=== PATIENT | male | born 1960 | race African-American/Black ===

== ENCOUNTER 2019-01-09 14:40 | Outpatient (CLI) | payer OTHER ==
--- NOTE | 2019-01-09 15:37 | ULT ---
Exam: Bilateral renal ultrasound HISTORY: Chronic kidney disease COMPARISON: None FINDINGS: Right kidney: There are multiple cysts within the right kidney. The largest is seen within the superi or pole measuring 3.1 x 2.8 x 2 cm. There are 2 additional 1.2 cm cyst seen within the right mid kidney. Right kidney measurements: 11.7 x 6.2 x 6.0 cm. Left kidney: There is a 2.2 x 2.5 x 2 cm cyst involving the inferior pole of the left kidney. Left kidney measurements: 10.8 x 4.7 x 4.8 cm. Urinary bladder: Prevoid bladder volume was 202.83 cc. There are bilateral ureteral jets. IMPRESSION: Bilateral renal cysts. No hydronephrosis demonstrated.
== END 2019-01-09 14:41 | disposition home or self-care (01) ==
LOC: BICULT 14:40
PROVIDERS: ATTEND Internal Medicine Nephrology
DX: N18.3 Chronic kidney disease, stage 3 (moderate) (principal); N28.1 Cyst of kidney, acquired
CPT/HCPCS: 76770

== ENCOUNTER 2020-05-07 09:40 | Inpatient (IN) | payer BC, OTHER ==
[2020-05-07 10:34] LABS: #Basophils 0.1 thou/uL (0.0-0.2); #Lymphocytes 0.7 thou/uL (1.20-3.40); #Monocytes 0.5 thou/uL (0.11-0.59); #Neutrophils 4.5 thou/uL (1.40-6.50); %Eosinophils 0.3 % (0.0-10.0); %Lymphocytes 12.3 % (21.0-51.0); %Monocytes 9.1 % (0.0-10.0); %Neutrophils 76.3 % (42.0-75.0); Mean Corpuscular HGB CONC 32.5 g/dL (32.0-36.0); Mean Corpuscular Hemoglobin 28.2 pg (27.0-31.0); Mean Corpuscular Volume 86.8 fL (78.0-98.0); Mean Platelet Volume 11.5 fL (7.4-10.4); Platelet Count 144 thou/uL (130-400); RBC Distribution Width 12.8 % (11.5-14.5); Red Blood Cell (RBC) Count 4.62 mill/uL (4.70-6.10); White Blood Cell (WBC) Count 5.9 thou/uL (4.8-10.8)
--- NOTE | 2020-05-07 10:37 | RAD ---
PORTABLE CHEST: Date: 05/07/2020 PROVIDED CLINICAL HISTORY: Dyspnea. FINDINGS: Comparison with 01/22/2017. Evaluation is limited by patient body habitus. The lungs are hypoinflated, further limiting evaluatio n. The cardiac silhouette appears enlarged, which may be at least partially on the basis of portable technique. There are patchy bilateral air space opacities. There is no pleural fluid or pneumothorax apparent. IMPRESSION: Patchy bilateral air space disease, typical but not specific for COVID pneumonia. POS: LLOYD
[2020-05-07 10:58] LABS: ALT (SGPT) 29 U/L (8-55); AST (SGOT) 40 U/L (5-34); Albumin 2.3 g/dL (3.5-5.0); Alkaline Phosphatase 72 U/L (40-110); Anion Gap 17 mmol/L (10-20); BUN (Urea Nitrogen) 66 mg/dL (8.4-25.7); Bilirubin, Total 0.3 mg/dL (0.2-1.2); Calc. Creatinine Clearance 0 mL/min (70-130); Calcium 7.6 mg/dL (7.8-10.44); Carbon Dioxide 16 mmol/L (22-29); Chloride 104 mmol/L (98-107); Globulin 3.4 g/dL (2.4-3.5); Glucose 143 mg/dL (70-105); Protein, Total 5.7 g/dL (6.0-8.3); Sodium 133 mmol/L (136-145)
[2020-05-07] MEDS ORDERED: Dexamethasone 4 mg/ml Vial SLOW IVP SCH (11:00)
[2020-05-07] MEDS ORDERED: Dexamethasone 10 MG/ML VIAL ONE (11:01)
[2020-05-07] MEDS ORDERED: Ondansetron PF 4 MG/2 ML Vial IVP PRN (12:36)
[2020-05-07] MEDS ORDERED: Acetaminophen 325 MG TAB PO PRN (12:36)
--- NOTE | 2020-05-07 12:43 | PDOC.HHP ---
Hospitalist HPI - History of Present Illness Low oxygen level History of Present Illness: 59-year-old gentleman with a history of diabetes mellitus type 2, obstructive sleep apnea, renal insufficiency presented to the emergency department because his oxygen level was in the mid 80s on room air when he checked at home. Patient reports some shortness of breath with exertion. He also reports intermittent fever and nonproductive cough as well as poor appetite. He reports decreased oral intake as a result of the poor appetite. He tested positive for COVID-19 5 days ago. Chest x-ray done in the emergency department demonstrated patchy bilateral infiltrates. His oxygen saturation was 85% on room air in the ED so patient was placed on oxygen by nasal cannula with a resultant good oxygen saturation. Blood work showed significantly elevated creatinine of 6 up to twice his baseline of 3 with associated metabolic acidosis with bicarb of 16. Nephrology was contacted who recommended renal ultrasound. He denied any diarrhea or nausea or vomiting. Patient is hospitalized for further management. Hospitalist ROS - Medication Medications: Except as documented, all other systems reviewed and negative. Hospitalist History - Past Medical History Cardiac: reports: HTN Pulmonary: reports: Other (Obstructive sleep apnea) Renal/: reports: Chronic renal insuff Endocrine: reports: Diabetes - Past Surgical History Past Surgical History: reports: Hernia Repair - Family History Family History: reports: diabetes mellitus (Mother) - Social History Smoking Status: Former smoker Alcohol: reports: Occassional Living Situation: With Family - Exam General Appearance: NAD, awake alert General - other findings: Morbidly obese Eye: PERRL, anicteric sclera ENT: normocephalic atraumatic, moist mucosa Neck: supple, symmetric, no JVD Respiratory: CTAB, no wheezes, no rales Gastrointestinal: soft, non-tender, normal bowel sounds Extremities: no cyanosis, no edema Skin: normal turgor, no lesions Neurological: cranial nerve grossly intact, no weakness, no focal deficits Musculoskeletal: normal tone, normal strength Psychiatric: normal affect, normal behavior, A&O x 3 Hospitalist Results - Labs Result Diagrams: 05/07/20 10:08 05/07/20 10:08 Lab results: WBC 5.9 thou/uL (4.8-10.8) 05/07/20 10:08 Hgb 13.0 g/dL (14.0-18.0) L 05/07/20 10:08 Hct 40.1 % (42.0-52.0) L 05/07/20 10:08 MCV 86.8 fL (78.0-98.0) 05/07/20 10:08 Plt Count 144 thou/uL (130-400) 05/07/20 10:08 Neutrophils % 76.3 % (42.0-75.0) H 05/07/20 10:08 Sodium 133 mmol/L (136-145) L 05/07/20 10:08 Potassium 4.0 mmol/L (3.5-5.1) 05/07/20 10:08 Chloride 104 mmol/L (98-107) 05/07/20 10:08 Carbon Dioxide 16 mmol/L (22-29) L 05/07/20 10:08 BUN 66 mg/dL (8.4-25.7) H 05/07/20 10:08 Creatinine 6.80 mg/dL (0.7-1.3) H 05/07/20 10:08 Glucose 143 mg/dL (70-105) H 05/07/20 10:08 Calcium 7.6 mg/dL (7.8-10.44) L 05/07/20 10:08 Total Bilirubin 0.3 mg/dL (0.2-1.2) 05/07/20 10:08 AST 40 U/L (5-34) H 05/07/20 10:08 ALT 29 U/L (8-55) 05/07/20 10:08 Alkaline Phosphatase 72 U/L (40-110) 05/07/20 10:08 Troponin I 0.025 ng/mL (< 0.028) 05/07/20 10:08 Serum Total Protein 5.7 g/dL (6.0-8.3) L 05/07/20 10:08 Albumin 2.3 g/dL (3.5-5.0) L 05/07/20 10:08 - Radiology Interpretation Chest x-ray Status: report reviewed by me (Bilateral patchy infiltrates.) Hospitalist H&P A/P - Problem (1) Acute renal failure superimposed on stage 4 chronic kidney disease Code(s): N17.9 - ACUTE KIDNEY FAILURE, UNSPECIFIED; N18.4 - CHRONIC KIDNEY DISEASE, STAGE 4 (SEVERE) Status: Acute (2) Pneumonia due to COVID-19 virus Code(s): U07.1 - COVID-19; J12.82 - PNEUMONIA DUE TO CORONAVIRUS DISEASE 2019 Status: Acute (3) Hypoxia Code(s): R09.02 - HYPOXEMIA Status: Acute (4) Diabetes mellitus type 2 in obese Code(s): E11.69 - TYPE 2 DIABETES MELLITUS WITH OTHER SPECIFIED COMPLICATION; E66.9 - OBESITY, UNSPECIFIED Status: Acute (5) Obstructive sleep apnea Code(s): G47.33 - OBSTRUCTIVE SLEEP APNEA (ADULT) (PEDIATRIC) Status: Acute - Plan Plan: Admit patient to the medical floor. Hydrate with IV fluid to treat acute renal failure. Nephrology recommend bicarb drip. Renal ultrasound requested per nephrology recommendation. UA with microscopy also requested. Consult to nephrology-Dr. Rendon. Start IV steroid for Covid pneumonia. Vitamin D and C supplementation. Zinc supplementation. Social service consult to arrange for home oxygen. Monitor renal function
[2020-05-07] MEDS ORDERED: Sodium Chloride 0.9% 1,000 ML IV SCH (12:45)
--- NOTE | 2020-05-07 13:01 | ULT ---
BILATERAL RENAL ULTRASOUND: Date: 05/07/2020 PROVIDED CLINICAL HISTORY: Renal failure. FINDINGS: Comparison with 01/09/2019. The right kidney measures about 10.3 x 5.4 x 4.6 cm and demonstrates no evidence for hydronephrosis o r solid mass. Simple-appearing cysts are seen similar to prior. The left kidney measures approximately 9.1 x 5.2 x 4.5 cm and demonstrates no evidence for hydronephr osis or solid mass. A simple-appearing cyst is seen, similar to the prior study. The urinary bladder appears sonographically unremarkable. IMPRESSION: No evidence for hydronephrosis. POS: LLOYD
[2020-05-07] MEDS ORDERED: Bacteriostatic Water 30 ML VIAL FS PRN (13:30)
[2020-05-07] MEDS ORDERED: Sodium Bicarbonate 50 MEQ in Sodium Chloride 0.45% 1,000 ML IV SCH (14:00)
[2020-05-07] MEDS ORDERED: Dextrose 5% in Water 1,000 ML IV SCH (14:00)
[2020-05-07] MEDS ORDERED: methylPREDNISolone Sod Succ 40 MG VIAL ONE (16:08)
[2020-05-07] MEDS: Heparin 5,000 UNITS/ML VIAL SC SCH ×2 (16:09→22:53)
[2020-05-07] MEDS: methylPREDNISolone Sod Succ/PF 125 MG/2 ML VIAL IVP SCH (16:14)
--- NOTE | 2020-05-07 20:04 | CON ---
DATE OF CONSULTATION: 05/07/2020 CONSULTING PHYSICIAN: Dr. Lipscomb. REASON FOR CONSULTATION: Acute kidney injury. REASON FOR ADMISSION: Hypoxia. HISTORY OF PRESENT ILLNESS: A 59-year-old male with history of type 2 diabetes, hypertension, CKD, was sent to the hospital with shortness of breath positive for COVID-19 five days ago and is being treated. Nephrology is consulted for acute kidney injury. His creatinine was elevated at 6.8. Baseline creatinine is around 2 to 3. The patient is on COVID isolation. PAST MEDICAL HISTORY: Positive for; 1. Hypertension. 2. CKD. 3. Type-2 diabetes. PAST SURGICAL HISTORY: Hernia repair. HOME MEDICATIONS: Reviewed. ALLERGIES: NO KNOWN DRUG ALLERGIES. SOCIAL HISTORY: No smoking, alcohol, or illicit drugs. FAMILY HISTORY: No history of kidney disease. REVIEW OF SYSTEMS: Could not be obtained. OBJECTIVE: The patient is on COVID isolation. Vital signs reviewed. LABORATORY DATA: Hemoglobin is 13.0. Potassium 4.0, BUN is 66, creatinine is 6.8. ASSESSMENT AND PLAN: 1. Acute kidney injury. Avoid nephrotoxins and check renal ultrasound. Hydration if tolerated with close monitoring of renal status. 2. Acidosis, on bicarb drip. 3. Hypocalcemia. 4. Hypoalbuminemia. 5. Anemia. Recommend bicarb drip with close monitoring on renal function and we will follow. Job ID: [id number]
[2020-05-07 20:25] VITALS: BMI 39.4
[2020-05-07] MEDS ORDERED: methylPREDNISolone Sod Succ 40 MG VIAL IVP SCH (21:00)
[2020-05-07] MEDS: Sodium Bicarbonate 150 MEQ in Dextrose 5% in Water 1,000 ML IV SCH (22:30)
[2020-05-07] MEDS: Ascorbic Acid 500 mg Chewable Tablet PO SCH (22:52)
[2020-05-08] MEDS: methylPREDNISolone Sod Succ/PF 125 MG/2 ML VIAL IVP SCH (02:38)
[2020-05-08 06:00] LABS: #Lymphocytes 0.6 thou/uL (1.20-3.40); #Monocytes 0.2 thou/uL (0.11-0.59); #Neutrophils 2.7 thou/uL (1.40-6.50); %Eosinophils 0.1 % (0.0-10.0); %Monocytes 4.2 % (0.0-10.0); %Neutrophils 78.7 % (42.0-75.0); Hemoglobin 13.8 g/dL (14.0-18.0); Mean Corpuscular HGB CONC 31.2 g/dL (32.0-36.0); Mean Corpuscular Volume 86.4 fL (78.0-98.0); Mean Platelet Volume 11.1 fL (7.4-10.4); Platelet Count 171 thou/uL (130-400); Red Blood Cell (RBC) Count 5.12 mill/uL (4.70-6.10); White Blood Cell (WBC) Count 3.5 thou/uL (4.8-10.8)
[2020-05-08 06:22] LABS: Albumin 2.4 g/dL (3.5-5.0); Anion Gap 19 mmol/L (10-20); BUN (Urea Nitrogen) 85 mg/dL (8.4-25.7); BUN/Creatinine Ratio 10.65; Calc. Creatinine Clearance 16 mL/min (70-130); Calcium 8.1 mg/dL (7.8-10.44); Carbon Dioxide 13 mmol/L (22-29); Chloride 102 mmol/L (98-107); Glucose 222 mg/dL (70-105); Phosphorus 6.6 mg/dL (2.3-4.7); Potassium 4.3 mmol/L (3.5-5.1); Sodium 130 mmol/L (136-145)
[2020-05-08 06:50] LABS: Bilirubin Negative (Negative); Blood, Urine 2+ (Negative); Clarity Clear (Clear); Glucose, Urine (Dipstick) 500 mg/dL (Negative); Ketone, Urine Negative (Negative); Leukocyte Negative Leu/uL (Negative); Nitrite Negative (Negative); Protein, Urine (Dipstick) Greater than 600 mg/dL (Neg-Trace); RBC/HPF 0-3 HPF (0-3); Specific Gravity, Urine 1.019 (1.002-1.036); Squamous Epithelial 0-3 HPF (0-3); Urobilinogen Normal mg/dL (Less than 2); pH, Urine 6.5 (5.0-9.0)
[2020-05-08 06:52] LABS: Bacteria/HPF 1+ HPF (None Seen)
[2020-05-08] MEDS: Ascorbic Acid 500 mg Chewable Tablet PO SCH (07:32)
[2020-05-08] MEDS: Cholecalciferol 1,000 UNITS (25 MCG) TAB PO SCH (07:33)
[2020-05-08] MEDS: Heparin 5,000 UNITS/ML VIAL SC SCH ×3 (07:34→21:11)
[2020-05-08] MEDS ORDERED: Sodium Bicarbonate 150 MEQ in Dextrose 5% in Water 1,000 ML IV SCH (08:00)
[2020-05-08] MEDS ORDERED: Dextrose 5% in Water 1,000 ML IV PRN (12:13)
[2020-05-08] MEDS ORDERED: Dextrose 50% Abboject 50 ML SYRINGE SLOW IVP PRN (12:13)
[2020-05-08] MEDS ORDERED: Dexamethasone 4 mg/ml Vial SLOW IVP SCH (12:30)
[2020-05-08] MEDS ORDERED: Albuterol 200 PUFF (6.7GM INHALER) INH PRN (12:39)
[2020-05-08] MEDS: Albuterol 200 PUFF (6.7GM INHALER) INH SCH ×3 (15:45→22:56)
[2020-05-08] MEDS: Insulin Regular 300 UNITS/3 ML VIAL SC PRN ×2 (15:56→21:22)
[2020-05-08] MEDS: Dexamethasone 4 mg/ml Vial SLOW IVP SCH (21:11)
[2020-05-08] MEDS: Sodium Bicarbonate 150 MEQ in Dextrose 5% in Water 1,000 ML IV SCH (21:14)
--- NOTE | 2020-05-08 23:39 | PDOC.HOSPP ---
- Subjective Encounter Date: 05/08/20 Encounter Time: 14:30 Subjective: Patient seen and examined for respiratory failure due to COVID 19 pneumonia with acute kidney injury. Refuses insulin per RN. Feeling somewhat better. Denies any chest pain or Palpitations. - Objective Vital Signs & Weight: Vital Signs (12 hours) Temp Pulse Resp BP Pulse Ox 05/08/20 21:25 98.4 F 88 22 H 139/88 95 05/08/20 16:00 98.4 F 84 19 126/86 95 05/08/20 11:41 98.4 F 87 14 133/94 H 100 Weight Weight 252 lb I&O: 05/07/20 05/08/20 05/09/20 06:59 06:59 06:59 Intake Total 990 1590 Output Total 400 401 Balance 590 1189 Result Diagrams: 05/08/20 05:44 05/08/20 05:44 Additional Labs: Accuchecks 05/08/20 05/08/20 05/08/20 21:20 15:58 11:47 POC Glucose 296 H 291 H 315 H 05/08/20 04:51 POC Glucose 238 H Abnormal Lab Results - Last 48 hrs 05/07/20 10:08: Sodium 133 L, Carbon Dioxide 16 L, BUN 66 H, Creatinine 6.80 H, Calcium 7.6 L, AST 40 H, Serum Total Protein 5.7 L, Albumin 2.3 L, Albumin/Globulin Ratio 0.7 L 05/07/20 10:08: RBC 4.62 L, Hgb 13.0 L, Hct 40.1 L, MPV 11.5 H, Neutrophils % 76.3 H, Lymphocytes % 12.3 L, Basophils % 2.0 H, Lymphocytes # 0.7 L 05/08/20 05:44: Sodium 130 L, Carbon Dioxide 13 L, BUN 85 H, Creatinine 7.98 H, Phosphorus 6.6 H, Albumin 2.4 L 05/08/20 05:44: WBC 3.5 L, Hgb 13.8 L, MCHC 31.2 L, MPV 11.1 H, Neutrophils % 78.7 H, Lymphocytes % 17.0 L, Lymphocytes # 0.6 L 05/08/20 06:10: Urine Protein Greater than 600 A, Urine Glucose (UA) 500 A, Urine Blood 2+ A, Urine WBC 4-6 A, Urine Bacteria 1+ A, Hyaline Casts 4-6 A Radiology Reviewed by me: Yes (Chest x-ray showed bilateral pneumonia) EKG Reviewed by me: Yes (Sinus rhythm on telemetry) Hospitalist ROS - Review of Systems Cardiovascular: denies: chest pain, palpitations, orthopnea, paroxysmal noc. dyspnea, edema, light headedness, other Gastrointestinal: denies: nausea, vomiting, abdominal pain, diarrhea, constipation, melena, hematochezia, other - Medication Medications: Active Medications Generic Name Dose Route Start Last Admin Trade Name Freq PRN Reason Stop Dose Admin Acetaminophen 650 mg 05/07/20 12:36 05/07/20 22:52 Acetaminophen 325 Mg Tab PO 650 mg Q4H PRN Administration Headache/Fever/Mild Pain (1-3) Albuterol Sulfate 2 puff 05/08/20 14:30 05/08/20 22:56 Albuterol 200 Puff (6.7gm Inhaler) INH 2 puff [id number] ESTELA Administration Cholecalciferol 4,000 units 05/08/20 09:00 05/08/20 07:33 Cholecalciferol 1,000 Units (25 Mcg) Tab PO 4,000 units DAILY ESTELA Administration Dexamethasone 6 mg 05/08/20 21:00 05/08/20 21:11 Dexamethasone 4 Mg/Ml Vial SLOW IVP 6 mg HS ESTELA Administration Heparin Sodium (Porcine) 5,000 units 05/07/20 15:00 05/08/20 21:11 Heparin 5,000 Units/Ml Vial SC 5,000 units TID ESTELA Administration Insulin Human Regular 0 units 05/08/20 12:13 05/08/20 15:56 Insulin Regular 300 Units/3 Ml Vial SC 6 unit .MODERATE SLIDING SC PRN Administration Moderate Correctional Scale Insulin Human Regular 0 units 05/08/20 12:13 05/08/20 21:22 Insulin Regular 300 Units/3 Ml Vial SC 3 unit .BEDTIME SLIDING SC PRN Administration Bedtime Correctional Scale Sodium Chloride 10 ml 05/07/20 21:00 05/08/20 21:12 Flush - Normal Saline 10 Ml Syringe IVF Not Given Q12HR ESTELA - Exam General Appearance: awake alert Neck: supple, no JVD Heart: RRR, no gallops, no rubs, normal peripheral pulses Respiratory: no wheezes, normal chest expansion, rales, rhonchi Gastrointestinal: soft, normal bowel sounds, no guarding, no rigidity Extremities: no cyanosis, no clubbing Skin: normal turgor Neurological: no new deficit Musculoskeletal: generalized weakness Psychiatric: normal affect, A&O x 3 Hosp A/P - Plan DVT proph w/heparin, DVT proph w/SCDs Acute hypoxic respiratory failure due to COVID 19 pneumonia AK on CKD stage IV Diabetes mellitus type II Obstructive sleep apnea Hyponatremia Metabolic acidosis due to renal failure Chronic anemia suspected due to renal insufficiency Obesity with a BMI 29.5 Plan: Will continue sodium bicarbonate drip. Continue O2 supplementation. Will start him on Lantus. Continue sliding scale. Add bronchodilators. Restart aspirin, amlodipine and low-dose carvedilol. Change Solu-Medrol to Decadron. Add low- dose glipizide since patient is refusing insulin most of the time. Monitor inflammatory markers. Low potassium diet. A.m. labs. Case discussed with nephrology
[2020-05-09] MEDS: Albuterol 200 PUFF (6.7GM INHALER) INH SCH ×6 (02:53→22:30)
[2020-05-09] MEDS: Insulin Regular 300 UNITS/3 ML VIAL SC PRN ×4 (05:09→21:50)
--- NOTE | 2020-05-09 05:44 | PRG ---
DATE OF SERVICE: 05/08/2020 SUBJECTIVE: The patient on COVID isolation. OBJECTIVE: VITAL SIGNS: Temperature 98.4, pulse 87, respiratory rate 14, oxygen saturation 100% on 2 L, and blood pressure 133/94. LABORATORY DATA: Potassium 4.3, BUN is 85, and creatinine is 7.9. ASSESSMENT AND PLAN: 1. Acute kidney injury on chronic kidney disease, stage 4. Renal function gets worse. 2. Hyponatremia. 3. Acidosis. 4. Hyperphosphatemia. 5. Hypoalbuminemia. 6. Anemia. No acute indication for dialysis. Continue close monitor. Avoid nephrotoxins. We will follow. Job ID: [id number]
[2020-05-09 06:13] LABS: Band 5 % (5-11); Hemoglobin 12.6 g/dL (14.0-18.0); Lymphocytes 3 % (21-51); MDiff Complete? YES; Mean Corpuscular HGB CONC 32.5 g/dL (32.0-36.0); Mean Corpuscular Hemoglobin 27.8 pg (27.0-31.0); Mean Corpuscular Volume 85.5 fL (78.0-98.0); Monocytes 1 % (0-10); Neutrophil 91 % (42-75); Platelet Count 216 thou/uL (130-400); Platelet Morphology Comment Appears Adequate; RBC Distribution Width 12.8 % (11.5-14.5); Red Blood Cell (RBC) Count 4.54 mill/uL (4.70-6.10); White Blood Cell (WBC) Count 17.4 thou/uL (4.8-10.8)
[2020-05-09 06:23] LABS: ALT (SGPT) 36 U/L (8-55); AST (SGOT) 30 U/L (5-34); Albumin 2.3 g/dL (3.5-5.0); Alkaline Phosphatase 74 U/L (40-110); Anion Gap 19 mmol/L (10-20); BUN (Urea Nitrogen) 108 mg/dL (8.4-25.7); Bilirubin, Total 0.2 mg/dL (0.2-1.2); CRP (Inflammatory) 5.16 mg/dL (= or < 0.5); Calc. Creatinine Clearance 15 mL/min (70-130); Carbon Dioxide 19 mmol/L (22-29); Chloride 99 mmol/L (98-107); Globulin 3.3 g/dL (2.4-3.5); Glucose 195 mg/dL (70-105); Protein, Total 5.6 g/dL (6.0-8.3); Sodium 133 mmol/L (136-145)
[2020-05-09] MEDS: Amlodipine 5 MG TAB PO SCH ×2 (08:12→21:45)
[2020-05-09] MEDS: glipiZIDE 5 MG TAB PO SCH (08:12)
[2020-05-09] MEDS: Carvedilol 6.25 MG TAB PO SCH ×2 (08:12→17:52)
[2020-05-09] MEDS: Aspirin Chewable 81 MG TAB PO SCH (08:13)
[2020-05-09] MEDS: Ascorbic Acid 500 mg Chewable Tablet PO SCH (08:13)
[2020-05-09] MEDS: Cholecalciferol 1,000 UNITS (25 MCG) TAB PO SCH (08:13)
[2020-05-09] MEDS: Sodium Bicarbonate Tab 325 MG TAB PO SCH ×2 (08:14→22:00)
[2020-05-09] MEDS: Heparin 5,000 UNITS/ML VIAL SC SCH ×3 (08:14→21:45)
[2020-05-09] MEDS: Insulin Glargine 10 UNITS in Pre-Filled Syringe 1 EACH SC SCH (09:49)
--- NOTE | 2020-05-09 19:00 | PRG ---
DATE OF SERVICE: 05/09/2020 SUBJECTIVE: A 59-year-old gentleman, being seen for acute kidney injury. Patient denied nausea, vomiting, or chest pain. OBJECTIVE: GENERAL: The patient is awake and alert. VITAL SIGNS: Afebrile, pulse 75, breathing 16, blood pressure 125/82. HEENT: Head normocephalic and atraumatic. Eyes intact, no ulcers. Nose intact, no ulcers. Ears intact, no ulcers. NECK: Supple. No JVD. CHEST: Symmetrical and clear. CARDIOVASCULAR: Shows S1 and S2, no rub, no murmur. GASTROINTESTINAL: Abdomen is soft, bowel sounds positive. EXTREMITIES: Show no edema or ulcers. SKIN: Shows no rash or petechiae. MUSCULOSKELETAL: Shows no joint swelling or stiffness. GENITOURINARY: Shows no Valladares or CVA tenderness. NEUROLOGIC: Motor intact. Cranial nerves intact. LABORATORY DATA: Hemoglobin 12.5, creatinine 8.9. ASSESSMENT AND PLAN: 1. Acute kidney injury with chronic kidney disease, stage 5, multifactorial with massive proteinuria, most likely due to progressive chronic kidney disease in the setting of COVID-19 acute tubular necrosis. Offered risks versus benefits of dialysis. Patient has refused. 2. Hypertension, stable. 3. Anemia, stable. Medication based on GFR appropriate. The patient has refused dialysis at this time. Job ID: [id number]
[2020-05-09] MEDS: Dexamethasone 4 mg/ml Vial SLOW IVP SCH (21:44)
[2020-05-09 21:58] LABS: SARS-CoV-2 IgG Ab Reactive (NonReactive); SARS-CoV-2 IgG Index 4.89 S/CO (< 1.40)
--- NOTE | 2020-05-09 22:58 | PDOC.HOSPP ---
- Subjective Encounter Date: 05/09/20 Encounter Time: 15:00 Subjective: Patient seen and examined for acute respiratory failure/COVID 19 pneumonia with acute kidney injury. Symptomatically feels much better. On 1 L nasal cannula. Denies any fever or chills. - Objective Vital Signs & Weight: Vital Signs (12 hours) Temp Pulse Resp BP Pulse Ox 05/09/20 21:45 81 05/09/20 19:44 97.6 F 81 19 118/81 99 05/09/20 15:14 97.6 F 78 19 125/82 100 Weight Weight 252 lb I&O: 05/08/20 05/09/20 05/10/20 06:59 06:59 06:59 Intake Total 990 1590 600 Output Total 400 401 Balance 590 1189 600 Result Diagrams: 05/09/20 05:16 05/09/20 05:16 Additional Labs: Accuchecks 05/09/20 05/09/20 05/09/20 21:09 19:50 16:33 POC Glucose 217 H 216 H 204 H 05/09/20 05/09/20 11:36 04:59 POC Glucose 219 H 213 H Abnormal Lab Results - Last 48 hrs 05/08/20 05:44: Sodium 130 L, Carbon Dioxide 13 L, BUN 85 H, Creatinine 7.98 H, Phosphorus 6.6 H, Albumin 2.4 L 05/08/20 05:44: WBC 3.5 L, Hgb 13.8 L, MCHC 31.2 L, MPV 11.1 H, Neutrophils % 78.7 H, Lymphocytes % 17.0 L, Lymphocytes # 0.6 L 05/08/20 06:10: Urine Protein Greater than 600 A, Urine Glucose (UA) 500 A, Urine Blood 2+ A, Urine WBC 4-6 A, Urine Bacteria 1+ A, Hyaline Casts 4-6 A 05/09/20 05:16: Sodium 133 L, Carbon Dioxide 19 L, BUN 108 H, Creatinine 8.90 H, C-Reactive Protein 5.16 H, Serum Total Protein 5.6 L, Albumin 2.3 L, Albumin/Globulin Ratio 0.7 L 05/09/20 05:16: Ferritin 2317.12 H 05/09/20 05:16: WBC 17.4 H, RBC 4.54 L, Hgb 12.6 L, Hct 38.8 L, MPV 11.0 H, Neutrophils % (Manual) 91 H, Lymphocytes % (Manual) 3 L 05/09/20 05:16: D-Dimer 0.99 H Radiology Reviewed by me: Yes (Chest x-raypneumonia) EKG Reviewed by me: Yes (Sinus rhythm on telemetry) Hospitalist ROS - Review of Systems Cardiovascular: denies: chest pain, palpitations, orthopnea, paroxysmal noc. dyspnea, edema, light headedness, other Gastrointestinal: denies: nausea, vomiting, abdominal pain, diarrhea, constipation, melena, hematochezia, other - Medication Medications: Active Medications Generic Name Dose Route Start Last Admin Trade Name Freq PRN Reason Stop Dose Admin Acetaminophen 650 mg 05/07/20 12:36 05/07/20 22:52 Acetaminophen 325 Mg Tab PO 650 mg Q4H PRN Administration Headache/Fever/Mild Pain (1-3) Albuterol Sulfate 2 puff 05/08/20 14:30 05/09/20 18:03 Albuterol 200 Puff (6.7gm Inhaler) INH 2 puff [id number] ESTELA Administration Amlodipine Besylate 5 mg 05/09/20 09:00 05/09/20 21:45 Amlodipine 5 Mg Tab PO 5 mg BID ESTELA Administration Ascorbic Acid 1,000 mg 05/09/20 09:00 05/09/20 08:13 Ascorbic Acid 500 Mg Chewable Tablet PO 1,000 mg DAILY ESTELA Administration Aspirin 81 mg 05/09/20 09:00 05/09/20 08:13 Aspirin Chewable 81 Mg Tab PO 81 mg DAILY ESTELA Administration Carvedilol 6.25 mg 05/09/20 08:00 05/09/20 17:52 Carvedilol 6.25 Mg Tab PO 6.25 mg BID-WM ESTELA Administration Cholecalciferol 4,000 units 05/08/20 09:00 05/09/20 08:13 Cholecalciferol 1,000 Units (25 Mcg) Tab PO 4,000 units DAILY ESTELA Administration Dexamethasone 6 mg 05/08/20 21:00 05/09/20 21:44 Dexamethasone 4 Mg/Ml Vial SLOW IVP 6 mg HS ESTELA Administration Glipizide 5 mg 05/09/20 07:30 05/09/20 08:12 Glipizide 5 Mg Tab PO 5 mg DAILY-AC ESTELA Administration Heparin Sodium (Porcine) 5,000 units 05/07/20 15:00 05/09/20 21:45 Heparin 5,000 Units/Ml Vial SC 5,000 units TID ESTELA Administration Insulin Glargine 10 units/ 0.1 mls @ 0 mls/hr 05/09/20 09:00 05/09/20 09:49 Miscellaneous Medication SC 0.1 mls QAM ESTELA Administration Insulin Human Regular 0 units 05/08/20 12:13 05/09/20 17:58 Insulin Regular 300 Units/3 Ml Vial SC 4 unit .MODERATE SLIDING SC PRN Administration Moderate Correctional Scale Insulin Human Regular 0 units 05/08/20 12:13 05/09/20 21:50 Insulin Regular 300 Units/3 Ml Vial SC 2 unit .BEDTIME SLIDING SC PRN Administration Bedtime Correctional Scale Pantoprazole Sodium 40 mg 05/09/20 09:00 05/09/20 08:14 Pantoprazole 40 Mg Tab PO 40 mg DAILY ESTELA Administration Sodium Bicarbonate 650 mg 05/09/20 09:00 05/09/20 22:00 Sodium Bicarbonate Tab 325 Mg Tab PO 650 mg BID ESTELA Administration Sodium Chloride 10 ml 05/07/20 21:00 05/09/20 21:46 Flush - Normal Saline 10 Ml Syringe IVF 10 ml Q12HR ESTELA Administration - Exam General Appearance: awake alert Neck: supple, no JVD Heart: RRR, no gallops Respiratory: no wheezes, rales, rhonchi Gastrointestinal: soft, non-tender, normal bowel sounds Extremities: no cyanosis Neurological: no new deficit Musculoskeletal: generalized weakness Psychiatric: A&O x 3 Hosp A/P - Plan DVT proph w/SCDs Acute hypoxic respiratory failure due to COVID 19 pneumonia Probably 15 of illness Diagnosed 5 days prior to admission AK on CKD stage IV Diabetes mellitus type II Obstructive sleep apnea Hyponatremia Metabolic acidosis due to renal failure Chronic anemia suspected due to renal insufficiency Obesity with a BMI 29.5 Plan: Continue close monitoring. Patient is declining hemodialysis at this time. Continue O2 supplementation with Decadron. Continue heparin for DVT prophylaxis. Add IV fluids with sodium bicarbonate for 1 bag. Continue sliding scale. A.m. labs. Check COVID 19 antibody. Patient is requesting to be discharged. Will consult infectious disease for assistance. Also consult palliative care since patient is refusing hemodialysis with a GFR of 7 and creatinine of 8.9. Patient is at high risk of decompensation. Recheck basic metabolic profile tomorrow afternoon. A.m. labs. Case discussed with nephrology
[2020-05-09] MEDS ORDERED: Sodium Bicarbonate 100 MEQ in Sodium Chloride 0.45% 1,000 ML IV SCH (23:00)
[2020-05-10] MEDS: Albuterol 200 PUFF (6.7GM INHALER) INH SCH ×4 (02:30→14:21)
[2020-05-10 05:35] LABS: Band 6 % (5-11); Hemoglobin 12.3 g/dL (14.0-18.0); Hypochromia SLIGHT = 6-15 cells (100X) (0-5/hpf); Lymphocytes 7 % (21-51); MDiff Complete? YES; Mean Corpuscular HGB CONC 33.5 g/dL (32.0-36.0); Mean Corpuscular Hemoglobin 28.7 pg (27.0-31.0); Mean Corpuscular Volume 85.8 fL (78.0-98.0); Mean Platelet Volume 10.7 fL (7.4-10.4); Neutrophil 87 % (42-75); Platelet Count 216 thou/uL (130-400); Platelet Morphology Comment Appears Adequate; RBC Distribution Width 12.8 % (11.5-14.5); Red Blood Cell (RBC) Count 4.27 mill/uL (4.70-6.10); White Blood Cell (WBC) Count 16.3 thou/uL (4.8-10.8)
[2020-05-10 05:43] LABS: ALT (SGPT) 34 U/L (8-55); AST (SGOT) 33 U/L (5-34); Albumin 2.2 g/dL (3.5-5.0); Alkaline Phosphatase 72 U/L (40-110); Anion Gap 20 mmol/L (10-20); Bilirubin, Total 0.2 mg/dL (0.2-1.2); Calc. Creatinine Clearance 14 mL/min (70-130); Calcium 8.1 mg/dL (7.8-10.44); Carbon Dioxide 19 mmol/L (22-29); Chloride 98 mmol/L (98-107); Globulin 3.6 g/dL (2.4-3.5); Glucose 187 mg/dL (70-105); Potassium 4.6 mmol/L (3.5-5.1); Protein, Total 5.8 g/dL (6.0-8.3); Sodium 132 mmol/L (136-145)
[2020-05-10 05:50] LABS: BUN (Urea Nitrogen) 121 mg/dL (8.4-25.7)
[2020-05-10] MEDS: Insulin Regular 300 UNITS/3 ML VIAL SC PRN ×3 (06:41→18:20)
[2020-05-10] MEDS: Sodium Bicarbonate Tab 325 MG TAB PO SCH (08:23)
[2020-05-10] MEDS: Aspirin Chewable 81 MG TAB PO SCH (08:24)
[2020-05-10] MEDS: glipiZIDE 5 MG TAB PO SCH (08:24)
[2020-05-10] MEDS: Carvedilol 6.25 MG TAB PO SCH ×2 (08:24→17:16)
[2020-05-10] MEDS: Amlodipine 5 MG TAB PO SCH (08:24)
[2020-05-10] MEDS: Ascorbic Acid 500 mg Chewable Tablet PO SCH (08:24)
[2020-05-10] MEDS: Heparin 5,000 UNITS/ML VIAL SC SCH ×2 (08:25→14:26)
[2020-05-10] MEDS: Cholecalciferol 1,000 UNITS (25 MCG) TAB PO SCH (08:25)
[2020-05-10] MEDS: Insulin Glargine 10 UNITS in Pre-Filled Syringe 1 EACH SC SCH (08:29)
--- NOTE | 2020-05-10 12:36 | PRG ---
DATE OF SERVICE: SUBJECTIVE: A 59-year-old gentleman being seen for acute kidney injury. Patient denied nausea, vomiting, or chest pain. OBJECTIVE: GENERAL: The patient is awake and alert. VITAL SIGNS: Afebrile, pulse 75, breathing at 16, blood pressure 122/85. HEENT: Head normocephalic and atraumatic. Eyes intact, no ulcers. Nose intact, no ulcers. Ears intact, no ulcers. NECK: Supple. No JVD. CHEST: Symmetrical and clear. CARDIOVASCULAR: Shows S1 and S2, no rub, no murmur. GASTROINTESTINAL: Abdomen is soft, bowel sounds positive. EXTREMITIES: Show no edema or ulcers. SKIN: Shows no rash or petechiae. MUSCULOSKELETAL: Shows no joint swelling or stiffness. GENITOURINARY: Shows no Valladares or CVA tenderness. NEUROLOGIC: Motor intact. Cranial nerves intact. LABORATORY DATA: Hemoglobin 12.3. Creatinine 9.4. ASSESSMENT AND RECOMMENDATIONS: 1. Acute kidney injury with chronic kidney disease. Discussed risks versus benefits of dialysis. Patient refused. 2. Hypertension, stable. 3. Anemia, stable. 4. Metabolic acidosis, stable. Advised patient if he changes his mind, he should call us. Job ID: [id number]
[2020-05-10 15:29] LABS: Anion Gap 20 mmol/L (10-20); Calc. Creatinine Clearance 14 mL/min (70-130); Calcium 8.2 mg/dL (7.8-10.44); Carbon Dioxide 20 mmol/L (22-29); Chloride 97 mmol/L (98-107); Glucose 280 mg/dL (70-105); Sodium 133 mmol/L (136-145)
[2020-05-10 15:40] LABS: BUN (Urea Nitrogen) 124 mg/dL (8.4-25.7)
[2020-05-10 17:07] VITALS: BP 120/86; TEMP 96.9
--- NOTE | 2020-05-12 12:18 | PDOC.DS.DS ---
Provider Date of Admission: 05/07/20 12:26 Date of Discharge: 05/10/20 Admitting Provider: Renzo Lipscomb MD Consultations: Nephrology Primary Care Physician: Unknown Course Hospital Course: This patient is a 59-year-old male who was diagnosed with COVID-19 5 days prior to presenting to the hospital. Patient presented with some respiratory issues and was found to be hypoxic. He was subsequently admitted to the hospital and started on supplemental oxygen with steroid therapy. Patient had known chronic kidney disease however he had worsening during this admission with his GFR down to 7. He was followed by Dr. Luna who was his regular giant tire repairer. He recommended dialysis however the patient declined. As the patient's symptoms improved and he was able to wean down off of the oxygen he was felt to be stable for discharge. He still required 1 L of oxygen with exertion and this was ob tained for the patient to use at home. Resuscitation Status: 05/07/20 12:36 Resuscitation Status Routine Resuscitation Status: FULL: Full Resuscitation Lab Results: 05/10/20 04:50 05/10/20 14:48 Abnormal Lab Results - Last 48 hrs 05/10/20 14:48: Sodium 133 L, Chloride 97 L, Carbon Dioxide 20 L, BUN 124 H, Creatinine 9.46 H Vitals: Weight Admit Weight 252 lb Weight 252 lb 0.166 oz Physical Exam: The patient was seen and examined on the day of discharge. Problem (1) Acute respiratory failure with hypoxia Code(s): J96.01 - ACUTE RESPIRATORY FAILURE WITH HYPOXIA Status: Acute (2) Hyponatremia Code(s): E87.1 - HYPO-OSMOLALITY AND HYPONATREMIA Status: Acute (3) Metabolic acidosis Code(s): E87.2 - ACIDOSIS Status: Acute (4) Anemia in chronic kidney disease Code(s): N18.9 - CHRONIC KIDNEY DISEASE, UNSPECIFIED; D63.1 - ANEMIA IN CHRONIC KIDNEY DISEASE Status: Acute (5) Acute renal failure superimposed on stage 4 chronic kidney disease Code(s): N17.9 - ACUTE KIDNEY FAILURE, UNSPECIFIED; N18.4 - CHRONIC KIDNEY DISEASE, STAGE 4 (SEVERE) Status: Acute (6) Diabetes mellitus type 2 in obese Code(s): E11.69 - TYPE 2 DIABETES MELLITUS WITH OTHER SPECIFIED COMPLICATION; E66.9 - OBESITY, UNSPECIFIED Status: Acute (7) Obstructive sleep apnea Code(s): G47.33 - OBSTRUCTIVE SLEEP APNEA (ADULT) (PEDIATRIC) Status: Acute (8) Pneumonia due to COVID-19 virus Code(s): U07.1 - COVID-19; J12.82 - PNEUMONIA DUE TO CORONAVIRUS DISEASE 2019 Status: Acute Time Spent in discharge related activities (mins): 35 Plan Prescriptions: Sodium Bicarbonate [Bicarbonate, Sodium] 650 mg PO BID #120 tab Dexamethasone 6 mg PO DAILY #5 tablet Home Medications: Medication Instructions Recorded Confirmed Type Allopurinol 300 mg PO DAILY 05/08/20 05/08/20 History Amlodipine [Norvasc] 10 mg PO DAILY 05/08/20 05/08/20 History Aspirin 1 tab PO DAILY 05/08/20 05/08/20 History Carvedilol 25 mg PO BID 05/08/20 05/08/20 History Furosemide [Lasix] 40 mg PO DAILY 05/08/20 05/08/20 History Linagliptin [Tradjenta] 5 mg PO DAILY 05/08/20 05/08/20 History Pravastatin Sodium 20 mg PO HS 05/08/20 05/08/20 History glipiZIDE [glipiZIDE ER] 5 mg PO BID 05/08/20 05/08/20 History hydrOXYzine HCl [Hydroxyzine HCl] 25 mg PO HS PRN 05/08/20 05/08/20 History Dexamethasone 6 mg PO DAILY #5 tablet 05/10/20 Rx Pantoprazole [Protonix] 40 mg PO DAILY tab 05/10/20 Rx Sodium Bicarbonate [Bicarbonate, 650 mg PO BID #120 tab 05/10/20 Rx Sodium] Allergies: No Known Allergies Allergy (Unverified 05/07/20 13:28) Activity:: Activity as Tolerated Nourishment:: Diabetic Diet, Heart Healthy Diet Referrals: Rock Luna MD [Active] - 14 Days (Call office to schedule appointment. Bring a copy of your discharge paperwork, including your current medication list.) Sharda Gupta MD [Active] - 7 Days (Call office to schedule appointment. Bring a copy of your discharge paperwork, including your current medication list. Ask if you should get your BUN and creatinine re-checked.) Disposition: HOME Quality CORE MEASURES:: N/A
== END 2020-05-10 18:44 | disposition home or self-care (01) | DRG 177 ==
LOC: ERS 09:40 → ERHOLD 12:26 → 2SW 18:14
PROVIDERS: ADMIT Internal Medicine; ATTEND Internal Medicine
PROC: 8E0ZXY6 Isolation (ICD-10-PCS; principal; 2020-05-07)
DX: U07.1 COVID-19 (principal); J12.82 Pneumonia due to coronavirus disease 2019; J96.01 Acute respiratory failure with hypoxia; N17.0 Acute kidney failure with tubular necrosis; E87.2 Acidosis; E87.1 Hypo-osmolality and hyponatremia; N18.5 Chronic kidney disease, stage 5; I12.0 Hypertensive chronic kidney disease with stage 5 chronic kidney disease or end stage renal disease; G47.33 Obstructive sleep apnea (adult) (pediatric); E66.01 Morbid (severe) obesity due to excess calories; E11.69 Type 2 diabetes mellitus with other specified complication; E11.22 Type 2 diabetes mellitus with diabetic chronic kidney disease; D63.1 Anemia in chronic kidney disease; E83.51 Hypocalcemia; E88.09 Other disorders of plasma-protein metabolism, not elsewhere classified; E83.39 Other disorders of phosphorus metabolism; Z83.3 Family history of diabetes mellitus; Z87.891 Personal history of nicotine dependence; Z98.890 Other specified postprocedural states; Z79.82 Long term (current) use of aspirin; Z79.899 Other long term (current) drug therapy; Z79.51 Long term (current) use of inhaled steroids
CPT/HCPCS: 36415; 36416; 71045; 76770; 80053; 80069; 81001; 82728; 84484; 85025; 85379; 86140; 86769; 93005; 96374; J1100; J1644; J1815; J2920; J2930; J7070

== ENCOUNTER 2021-02-13 10:11 | Day surgery (SDC) | payer OTHER ==
[2021-02-10 11:42] VITALS: BMI 39.1
[2021-02-13] MEDS ORDERED: Lidocaine 1% PF 5 ML VIAL ONE (11:00)
[2021-02-13] MEDS ORDERED: PROPOFOL 200 MG/20 ML VIAL ONE (11:00)
[2021-02-13] MEDS ORDERED: Labetalol HCl 100 MG/20 ML VIAL ONE (11:40)
== END 2021-02-13 12:41 | disposition home or self-care (01) ==
LOC: MRI 10:11
PROVIDERS: ATTEND Orthopaedic Surgery
DX: M50.223 Other cervical disc displacement at C6-C7 level (principal); M25.78 Osteophyte, vertebrae; M48.02 Spinal stenosis, cervical region; E78.5 Hyperlipidemia, unspecified; G47.33 Obstructive sleep apnea (adult) (pediatric); I12.9 Hypertensive chronic kidney disease with stage 1 through stage 4 chronic kidney disease, or unspecified chronic kidney disease; E11.22 Type 2 diabetes mellitus with diabetic chronic kidney disease; N18.9 Chronic kidney disease, unspecified; K21.9 Gastro-esophageal reflux disease without esophagitis; Z79.82 Long term (current) use of aspirin; Z79.84 Long term (current) use of oral hypoglycemic drugs; Z79.899 Other long term (current) drug therapy
CPT/HCPCS: 72141; J2704

== ENCOUNTER 2021-09-15 09:17 | Outpatient (CLI) | payer BC | END 2021-09-15 09:18 | disposition home or self-care (01) | LOC: RAD 09:17 | PROVIDERS: ATTEND Internal Medicine Critical Care Medicine | DX: R06.00 Dyspnea, unspecified (principal) | CPT/HCPCS: 71046 ==

== ENCOUNTER 2021-11-16 16:00 | Emergency (ER) | payer BC ==
[2021-11-16 17:20] LABS: #Eosinphils 0.1 thou/uL (0.0-0.7); #Lymphocytes 1.1 thou/uL (1.20-3.40); #Monocytes 0.4 thou/uL (0.11-0.59); #Neutrophils 11.8 thou/uL (1.40-6.50); %Eosinophils 0.4 % (0.0-10.0); %Lymphocytes 8.4 % (21.0-51.0); %Monocytes 3.2 % (0.0-10.0); Hemoglobin 8.8 g/dL (14.0-18.0); Mean Corpuscular HGB CONC 33.4 g/dL (32.0-36.0); Mean Corpuscular Hemoglobin 29.2 pg (27.0-31.0); Mean Corpuscular Volume 87.5 fL (78.0-98.0); Mean Platelet Volume 8.2 fL (7.4-10.4); Platelet Count 242 thou/uL (130-400); RBC Distribution Width 13.8 % (11.5-14.5); White Blood Cell (WBC) Count 13.5 thou/uL (4.8-10.8)
[2021-11-16 17:40] LABS: ALT (SGPT) 7 U/L (8-55); AST (SGOT) 8 U/L (5-34); Albumin 3.4 g/dL (3.5-5.0); Alkaline Phosphatase 53 U/L (40-110); Anion Gap 20 mmol/L (10-20); BUN (Urea Nitrogen) 123 mg/dL (8.4-25.7); Bilirubin, Total 0.2 mg/dL (0.2-1.2); Calc. Creatinine Clearance 0 mL/min (70-130); Calcium 9.9 mg/dL (7.8-10.44); Carbon Dioxide 14 mmol/L (22-29); Chloride 113 mmol/L (98-107); Estimated GFR 5; Globulin 3.3 g/dL (2.4-3.5); Glucose 69 mg/dL (70-105); Potassium 4.8 mmol/L (3.5-5.1); Protein, Total 6.7 g/dL (6.0-8.3); Sodium 142 mmol/L (136-145)
[2021-11-16 20:45] LABS: Bilirubin Negative (Negative); Blood, Urine 1+ (Negative); Clarity Clear (Clear); Glucose, Urine (Dipstick) 70 mg/dL (Negative); Ketone, Urine Negative (Negative); Leukocyte Negative Leu/uL (Negative); Nitrite Negative (Negative); Protein, Urine (Dipstick) 300 mg/dL (Neg-Trace); RBC/HPF 0-3 HPF (0-3); Specific Gravity, Urine 1.012 (1.002-1.036); Squamous Epithelial 0-3 HPF (0-3); Urobilinogen Normal mg/dL (Less than 2)
[2021-11-16 20:57] LABS: Bacteria/HPF Rare-Few HPF (None Seen)
== END 2021-11-16 21:55 | disposition home or self-care (01) ==
LOC: ERS 16:00
DX: N18.6 End stage renal disease (principal); Z87.891 Personal history of nicotine dependence; E03.9 Hypothyroidism, unspecified; E11.22 Type 2 diabetes mellitus with diabetic chronic kidney disease
CPT/HCPCS: 36415; 76870; 80053; 81003; 81015; 83605; 85025; 87040; 87086; 93976

== ENCOUNTER 2021-11-17 16:40 | Inpatient (IN) | payer BC ==
[2021-11-17 18:20] LABS: #Lymphocytes 0.9 thou/uL (1.20-3.40); #Monocytes 0.3 thou/uL (0.11-0.59); #Neutrophils 11.9 thou/uL (1.40-6.50); %Eosinophils 0.3 % (0.0-10.0); %Lymphocytes 6.5 % (21.0-51.0); %Monocytes 2.5 % (0.0-10.0); %Neutrophils 90.8 % (42.0-75.0); Hemoglobin 8.5 g/dL (14.0-18.0); Mean Corpuscular Hemoglobin 28.1 pg (27.0-31.0); Mean Corpuscular Volume 87.9 fL (78.0-98.0); Mean Platelet Volume 8.3 fL (7.4-10.4); Platelet Count 253 thou/uL (130-400); RBC Distribution Width 13.9 % (11.5-14.5); Red Blood Cell (RBC) Count 3.02 mill/uL (4.70-6.10); White Blood Cell (WBC) Count 13.1 thou/uL (4.8-10.8)
[2021-11-17 18:39] LABS: Phosphorus 7.4 mg/dL (2.3-4.7)
[2021-11-17 18:42] LABS: ALT (SGPT) Less than 7 U/L (8-55); AST (SGOT) 8 U/L (5-34); Albumin 3.5 g/dL (3.5-5.0); Alkaline Phosphatase 59 U/L (40-110); Anion Gap 18 mmol/L (10-20); BUN (Urea Nitrogen) 121 mg/dL (8.4-25.7); Bilirubin, Total 0.3 mg/dL (0.2-1.2); Calc. Creatinine Clearance 0 mL/min (70-130); Calcium 9.5 mg/dL (7.8-10.44); Carbon Dioxide 16 mmol/L (22-29); Chloride 110 mmol/L (98-107); Estimated GFR 5; Globulin 3.2 g/dL (2.4-3.5); Glucose 254 mg/dL (70-105); Magnesium 1.7 mg/dL (1.6-2.6); Potassium 5.1 mmol/L (3.5-5.1); Protein, Total 6.7 g/dL (6.0-8.3); Sodium 139 mmol/L (136-145)
[2021-11-17 19:15] LABS: Bilirubin Negative (Negative); Blood, Urine 1+ (Negative); Clarity Clear (Clear); Glucose, Urine (Dipstick) 500 mg/dL (Negative); Ketone, Urine Negative (Negative); Leukocyte Negative Leu/uL (Negative); Nitrite Negative (Negative); Protein, Urine (Dipstick) 300 mg/dL (Neg-Trace); RBC/HPF 0-3 HPF (0-3); Specific Gravity, Urine 1.013 (1.002-1.036); Squamous Epithelial None Seen HPF (0-3); Urobilinogen Normal mg/dL (Less than 2)
[2021-11-17 19:26] LABS: Bacteria/HPF Rare-Few HPF (None Seen)
[2021-11-17] MEDS ORDERED: Acetaminophen 325 MG TAB PO PRN (19:30)
[2021-11-17] MEDS ORDERED: Ondansetron PF 4 MG/2 ML Vial IVP PRN (19:30)
[2021-11-17] MEDS ORDERED: Ondansetron ODT 4 MG TAB SL PRN (19:30)
[2021-11-17] MEDS ORDERED: Acetaminophen 650 MG Suppository PR PRN (22:47)
[2021-11-17] MEDS ORDERED: CEFAZOLIN 2 GM in Sodium Chloride 0.9% 100 ML IVPB SCH (23:15)
[2021-11-17] MEDS ORDERED: Albuterol 200 PUFF (6.7GM INHALER) INH PRN (23:31)
[2021-11-17 23:48] VITALS: BMI 38.0
[2021-11-18] MEDS: Acetaminophen 325 MG TAB PO PRN ×2 (00:03→09:18)
[2021-11-18 01:19] LABS: SARS-CoV-2 NAA Rapid Test Not Detected (NotDetected)
[2021-11-18] MEDS ORDERED: Sodium Bicarbonate 50 MEQ in Sodium Chloride 0.45% 1,000 ML IV SCH (03:30)
[2021-11-18 04:45] LABS: #Lymphocytes 1.2 thou/uL (1.20-3.40); #Monocytes 0.6 thou/uL (0.11-0.59); %Basophils 0.3 % (0.0-1.0); %Eosinophils 0.3 % (0.0-10.0); %Lymphocytes 11.3 % (21.0-51.0); %Monocytes 5.6 % (0.0-10.0); %Neutrophils 82.5 % (42.0-75.0); Hemoglobin 7.7 g/dL (14.0-18.0); Mean Corpuscular Hemoglobin 27.8 pg (27.0-31.0); Mean Corpuscular Volume 89.5 fL (78.0-98.0); Mean Platelet Volume 8.4 fL (7.4-10.4); Platelet Count 248 thou/uL (130-400); RBC Distribution Width 13.9 % (11.5-14.5); Red Blood Cell (RBC) Count 2.78 mill/uL (4.70-6.10); White Blood Cell (WBC) Count 10.9 thou/uL (4.8-10.8)
[2021-11-18 05:03] LABS: Anion Gap 16 mmol/L (10-20); Calc. Creatinine Clearance 11 mL/min (70-130); Calcium 9.5 mg/dL (7.8-10.44); Carbon Dioxide 18 mmol/L (22-29); Chloride 111 mmol/L (98-107); Estimated GFR 5; Glucose 225 mg/dL (70-105); Sodium 140 mmol/L (136-145)
[2021-11-18 05:15] LABS: BUN (Urea Nitrogen) 111 mg/dL (8.4-25.7)
[2021-11-18] MEDS ORDERED: Patiromer Calcium Sorbitex [Veltassa] 8.4 GM Powd.Pack PO SCH (09:00)
[2021-11-18] MEDS: Aspirin Chewable 81 MG TAB PO SCH (09:07)
[2021-11-18] MEDS: Allopurinol 100 MG TAB PO SCH ×2 (09:07→20:23)
[2021-11-18] MEDS: Cyanocobalamin (Vitamin B-12) 1,000 MCG TAB PO SCH (09:07)
[2021-11-18] MEDS: Amlodipine 10 MG TAB PO SCH (09:07)
[2021-11-18] MEDS: Carvedilol 25 MG TAB PO SCH ×2 (09:08→20:22)
[2021-11-18] MEDS ORDERED: Heparin 10,000 UNITS/ 10 ML VIAL ONE (09:37)
[2021-11-18 12:53] LABS: HBSAB Concentration Less than 8.00 mIU/mL; HBSAg Index 0.34 S/CO (0-0.99); Hep B Core Total Ab Non-Reactive (NonReactive); Hep B Core Total Index 0.06 S/CO (0-0.79); Hep B Surf AB Non-Reactive (NonReactive); Hep B Surf Ag Non-Reactive S/CO (NonReactive); Hep C IgG Ab Non-Reactive (NonReactive); Hep C Index 0.09 S/CO (0-0.79)
[2021-11-18] MEDS: traMADol HCl 50 MG TAB PO PRN ×2 (15:21→20:23)
[2021-11-19 08:01] LABS: Hemoglobin 7.9 g/dL (14.0-18.0); Mean Corpuscular HGB CONC 32.5 g/dL (32.0-36.0); Mean Corpuscular Hemoglobin 28.6 pg (27.0-31.0); Mean Corpuscular Volume 88.2 fL (78.0-98.0); Mean Platelet Volume 8.3 fL (7.4-10.4); Platelet Count 227 thou/uL (130-400); RBC Distribution Width 13.8 % (11.5-14.5); Red Blood Cell (RBC) Count 2.76 mill/uL (4.70-6.10); White Blood Cell (WBC) Count 16.8 thou/uL (4.8-10.8)
[2021-11-19] MEDS ORDERED: CEFAZOLIN 2 GM in Sodium Chloride 0.9% 100 ML IVPB SCH (08:45)
[2021-11-19 08:51] LABS: Thyroid Stimulating Hormone 1.7466 uIU/mL (0.35-4.94)
[2021-11-19 09:02] LABS: Vitamin B12 Greater than 2000 pg/mL (211-911)
[2021-11-19] MEDS ORDERED: Heparin 10,000 UNITS/ 10 ML VIAL ONE (09:39)
[2021-11-19] MEDS: Cyanocobalamin (Vitamin B-12) 1,000 MCG TAB PO SCH (13:20)
[2021-11-19] MEDS: Amlodipine 10 MG TAB PO SCH (13:20)
[2021-11-19] MEDS: Aspirin Chewable 81 MG TAB PO SCH (13:20)
[2021-11-19] MEDS: traMADol HCl 50 MG TAB PO PRN (13:29)
[2021-11-19] MEDS: Allopurinol 100 MG TAB PO SCH ×2 (13:33→21:34)
[2021-11-19] MEDS: Carvedilol 25 MG TAB PO SCH ×2 (13:34→21:34)
[2021-11-19] MEDS ORDERED: Ondansetron PF 4 MG/2 ML Vial IVP PRN (16:52)
[2021-11-19] MEDS ORDERED: Ondansetron ODT 4 MG TAB PO PRN (17:26)
[2021-11-19] MEDS: Lidocaine 5% Patch TD SCH (18:28)
[2021-11-19] MEDS: Alogliptin 6.25 MG TAB PO SCH (21:34)
[2021-11-19] MEDS: Sodium Bicarbonate Tab 325 MG TAB PO SCH (21:34)
[2021-11-19] MEDS: Acetaminophen 325 MG TAB PO PRN (21:38)
[2021-11-20] MEDS: Acetaminophen 325 MG TAB PO PRN ×2 (01:10→21:54)
[2021-11-20] MEDS: Transdermal Patch Removal TOP SCH (05:29)
[2021-11-20 05:44] LABS: #Eosinphils 0.1 thou/uL (0.0-0.7); #Lymphocytes 1.6 thou/uL (1.20-3.40); #Monocytes 1.3 thou/uL (0.11-0.59); #Neutrophils 12.3 thou/uL (1.40-6.50); %Basophils 0.3 % (0.0-1.0); %Eosinophils 0.7 % (0.0-10.0); %Lymphocytes 10.5 % (21.0-51.0); %Monocytes 8.5 % (0.0-10.0); %Neutrophils 80.1 % (42.0-75.0); Mean Corpuscular HGB CONC 32.3 g/dL (32.0-36.0); Mean Corpuscular Hemoglobin 28.6 pg (27.0-31.0); Mean Corpuscular Volume 88.5 fL (78.0-98.0); Mean Platelet Volume 8.7 fL (7.4-10.4); Platelet Count 199 thou/uL (130-400); RBC Distribution Width 14.5 % (11.5-14.5); Red Blood Cell (RBC) Count 3.15 mill/uL (4.70-6.10); White Blood Cell (WBC) Count 15.3 thou/uL (4.8-10.8)
[2021-11-20 06:02] LABS: Sodium 137 mmol/L (136-145)
[2021-11-20 06:03] LABS: Anion Gap 15 mmol/L (10-20); BUN (Urea Nitrogen) 50 mg/dL (8.4-25.7); Calc. Creatinine Clearance 19 mL/min (70-130); Calcium 9.6 mg/dL (7.8-10.44); Carbon Dioxide 24 mmol/L (22-29); Chloride 102 mmol/L (98-107); Estimated GFR 9; Glucose 119 mg/dL (70-105)
[2021-11-20] MEDS ORDERED: Calcitriol 0.25 MCG CAP PO SCH (09:00)
[2021-11-20] MEDS: Ferrous Sulfate 325 MG TAB PO SCH (09:04)
[2021-11-20] MEDS: Aspirin Chewable 81 MG TAB PO SCH (09:04)
[2021-11-20] MEDS: Famotidine 20 MG TAB PO SCH (09:04)
[2021-11-20] MEDS: Cyanocobalamin (Vitamin B-12) 1,000 MCG TAB PO SCH (09:04)
[2021-11-20] MEDS: Allopurinol 100 MG TAB PO SCH ×2 (09:05→21:49)
[2021-11-20] MEDS: Carvedilol 25 MG TAB PO SCH ×2 (09:05→21:49)
[2021-11-20] MEDS: predniSONE 5 MG TAB PO SCH (09:06)
[2021-11-20] MEDS: Sodium Bicarbonate Tab 325 MG TAB PO SCH ×3 (09:07→21:49)
[2021-11-20] MEDS: Amlodipine 10 MG TAB PO SCH (09:08)
[2021-11-20] MEDS ORDERED: fentaNYL Citrate/PF 100 MCG/2 ML SYRINGE ONE (12:42)
[2021-11-20] MEDS ORDERED: Heparin 5,000 UNITS/ML VIAL ONE (12:43)
[2021-11-20] MEDS ORDERED: Protamine Sulfate 50 MG/5 ML VIAL ONE (12:43)
[2021-11-20] MEDS ORDERED: Heparin 10,000 UNITS/ 10 ML VIAL ONE (12:43)
[2021-11-20] MEDS ORDERED: Bupivacaine/Epinephrine 0.25% 30 ML VIAL ONE ×2 (12:43→14:08)
[2021-11-20] MEDS ORDERED: CEFAZOLIN 2 GM VIAL ONE (12:58)
[2021-11-20] MEDS ORDERED: Sodium Chloride 0.9% 100 ML ONE (12:58)
[2021-11-20] MEDS ORDERED: Lidocaine 1% PF 5 ML VIAL ONE (13:18)
[2021-11-20] MEDS ORDERED: Neostigmine Methylsulfate 3 MG/3 ML SYRINGE ONE (13:18)
[2021-11-20] MEDS ORDERED: Glycopyrrolate 0.2 MG/ML 5 ML SYRINGE ONE (13:18)
[2021-11-20] MEDS ORDERED: Rocuronium Bromide 10 MG/ML (10ML VIAL) ONE (13:18)
[2021-11-20] MEDS ORDERED: Phenylephrine 10 MG/ML VIAL ONE (13:18)
[2021-11-20] MEDS ORDERED: Ondansetron PF 4 MG/2 ML Vial ONE (13:18)
[2021-11-20] MEDS ORDERED: PROPOFOL 200 MG/20 ML VIAL ONE (13:18)
[2021-11-20] MEDS ORDERED: Tuberculin PPD 0.1 ML VIAL I-DERMAL SCH (14:00)
[2021-11-20] MEDS: traMADol HCl 50 MG TAB PO PRN (18:39)
[2021-11-20] MEDS: Lidocaine 5% Patch TD SCH (18:39)
[2021-11-20] MEDS: Alogliptin 6.25 MG TAB PO SCH (21:49)
[2021-11-21] MEDS: Transdermal Patch Removal TOP SCH (06:06)
[2021-11-21] MEDS: traMADol HCl 50 MG TAB PO PRN ×2 (06:10→13:07)
[2021-11-21] MEDS: Acetaminophen 325 MG TAB PO PRN ×2 (06:10→13:06)
[2021-11-21] MEDS ORDERED: Heparin 10,000 UNITS/ 10 ML VIAL ONE (09:29)
[2021-11-21] MEDS: Amlodipine 10 MG TAB PO SCH (12:50)
[2021-11-21] MEDS: Allopurinol 100 MG TAB PO SCH (12:50)
[2021-11-21] MEDS: Sodium Bicarbonate Tab 325 MG TAB PO SCH (12:51)
[2021-11-21] MEDS: Carvedilol 25 MG TAB PO SCH (12:51)
[2021-11-21] MEDS: Aspirin Chewable 81 MG TAB PO SCH (13:06)
[2021-11-21] MEDS: Cyanocobalamin (Vitamin B-12) 1,000 MCG TAB PO SCH (13:06)
[2021-11-21] MEDS: Ferrous Sulfate 325 MG TAB PO SCH (13:07)
[2021-11-21] MEDS: Famotidine 20 MG TAB PO SCH (13:07)
[2021-11-21] MEDS: predniSONE 5 MG TAB PO SCH (13:07)
[2021-11-21 15:37] VITALS: BP 124/81; TEMP 98
[2021-11-21] MEDS: Lidocaine 5% Patch TD SCH (17:48)
[2021-11-22] MEDS ORDERED: READ PPD TEST SITE PO SCH (14:00)
== END 2021-11-21 17:54 | disposition home or self-care (01) | DRG 673 ==
LOC: ERS 16:40 → T4-B 19:23
PROVIDERS: ADMIT Student in an Organized Health Care Education/Training Program; ATTEND Internal Medicine Geriatric Medicine
PROC: 06HY33Z Insertion of Infusion Device into Lower Vein, Percutaneous Approach (ICD-10-PCS; 2021-11-17)
PROC: 5A1D70Z Performance of Urinary Filtration, Intermittent, Less than 6 Hours Per Day (ICD-10-PCS; 2021-11-18)
PROC: 5A1D70Z Performance of Urinary Filtration, Intermittent, Less than 6 Hours Per Day (ICD-10-PCS; 2021-11-19)
PROC: 30233N1 Transfusion of Nonautologous Red Blood Cells into Peripheral Vein, Percutaneous Approach (ICD-10-PCS; 2021-11-19)
PROC: 031C0ZF Bypass Left Radial Artery to Lower Arm Vein, Open Approach (ICD-10-PCS; principal; 2021-11-20)
PROC: 0JH63XZ Insertion of Tunneled Vascular Access Device into Chest Subcutaneous Tissue and Fascia, Percutaneous Approach (ICD-10-PCS; 2021-11-20)
PROC: 02HV33Z Insertion of Infusion Device into Superior Vena Cava, Percutaneous Approach (ICD-10-PCS; 2021-11-20)
PROC: B5181ZA Fluoroscopy of Superior Vena Cava using Low Osmolar Contrast, Guidance (ICD-10-PCS; 2021-11-20)
PROC: B548ZZA Ultrasonography of Superior Vena Cava, Guidance (ICD-10-PCS; 2021-11-20)
PROC: 5A1D70Z Performance of Urinary Filtration, Intermittent, Less than 6 Hours Per Day (ICD-10-PCS; 2021-11-20)
PROC: 06PYX3Z Removal of Infusion Device from Lower Vein, External Approach (ICD-10-PCS; 2021-11-20)
PROC: 5A1D70Z Performance of Urinary Filtration, Intermittent, Less than 6 Hours Per Day (ICD-10-PCS; 2021-11-21)
DX: I12.0 Hypertensive chronic kidney disease with stage 5 chronic kidney disease or end stage renal disease (principal); N18.6 End stage renal disease; N17.9 Acute kidney failure, unspecified; E87.2 Acidosis; I82.602 Acute embolism and thrombosis of unspecified veins of left upper extremity; E11.40 Type 2 diabetes mellitus with diabetic neuropathy, unspecified; G47.33 Obstructive sleep apnea (adult) (pediatric); G89.29 Other chronic pain; M19.90 Unspecified osteoarthritis, unspecified site; M10.9 Gout, unspecified; Z20.822 Contact with and (suspected) exposure to COVID-19; E03.9 Hypothyroidism, unspecified; E11.22 Type 2 diabetes mellitus with diabetic chronic kidney disease; E66.01 Morbid (severe) obesity due to excess calories; E87.5 Hyperkalemia; D63.1 Anemia in chronic kidney disease; Z79.82 Long term (current) use of aspirin; Z79.899 Other long term (current) drug therapy; Z79.51 Long term (current) use of inhaled steroids; Z98.890 Other specified postprocedural states; Z68.38 Body mass index [BMI] 38.0-38.9, adult
CPT/HCPCS: 36415; 36416; 36430; 71045; 80048; 80053; 81003; 82607; 83735; 84100; 84443; 85025; 85027; 86580; 86704; 86850; 86900; 86901; 87340; 90935; 93005; 93970; 96374; C1751; C1752; C1776; G0257; J0690; J1642; J1644; J2370; J2405; J2704; J2720; J3490; J7512; P9016; Q0162; U0002

== ENCOUNTER 2022-01-25 12:26 | Observation (INO) | payer BC ==
[2022-01-25 17:02] LABS: #Basophils 0.1 thou/uL (0.0-0.2); #Lymphocytes 2.1 thou/uL (1.20-3.40); #Monocytes 0.7 thou/uL (0.11-0.59); #Neutrophils 8.8 thou/uL (1.40-6.50); %Basophils 0.5 % (0.0-1.0); %Eosinophils 0.2 % (0.0-10.0); %Monocytes 6.2 % (0.0-10.0); %Neutrophils 75.1 % (42.0-75.0); Hemoglobin 11.8 g/dL (14.0-18.0); Mean Corpuscular HGB CONC 29.1 g/dL (32.0-36.0); Mean Corpuscular Hemoglobin 26.9 pg (27.0-31.0); Mean Corpuscular Volume 92.6 fL (78.0-98.0); Platelet Count 179 thou/uL (130-400); RBC Distribution Width 15.9 % (11.5-14.5); Red Blood Cell (RBC) Count 4.38 mill/uL (4.70-6.10); White Blood Cell (WBC) Count 11.8 thou/uL (4.8-10.8)
[2022-01-25 17:07] LABS: ALT (SGPT) 15 U/L (8-55); AST (SGOT) 15 U/L (5-34); Alkaline Phosphatase 56 U/L (40-110); Anion Gap 16 mmol/L (10-20); BUN (Urea Nitrogen) 24 mg/dL (8.4-25.7); Bilirubin, Total 0.3 mg/dL (0.2-1.2); Calc. Creatinine Clearance 0 mL/min (70-130); Calcium 10.4 mg/dL (7.8-10.44); Carbon Dioxide 25 mmol/L (22-29); Chloride 103 mmol/L (98-107); Estimated GFR 11; Globulin 2.9 g/dL (2.4-3.5); Glucose 121 mg/dL (70-105); Potassium 4.3 mmol/L (3.5-5.1); Protein, Total 6.9 g/dL (6.0-8.3); Sodium 140 mmol/L (136-145)
[2022-01-25 17:29] LABS: Anisocytosis SLIGHT = 6-15 cells (100X) (0-5/hpf); Hypochromia SLIGHT = 6-15 cells (100X) (0-5/hpf); MDiff Complete? YES; Ovalocytes SLIGHT = 2-5 cells (100X) (0-1/hpf); Platelet Morphology Comment Appears Adequate; Polychromasia SLIGHT = 2-3 cells (100X) (0-2/hpf)
[2022-01-25] MEDS ORDERED: hydrALAZINE 20 MG/ML VIAL ONE ×2 (18:57→20:12)
[2022-01-25] MEDS ORDERED: Enalaprilat Dihydrate 1.25 MG/ML VIAL SLOW IVP SCH (21:06)
[2022-01-25] MEDS ORDERED: Acetaminophen 650 MG Suppository PR PRN (21:36)
[2022-01-25] MEDS ORDERED: Ondansetron ODT 4 MG TAB PO PRN (21:36)
[2022-01-25] MEDS ORDERED: Ondansetron PF 4 MG/2 ML Vial IVP PRN (21:36)
[2022-01-25] MEDS ORDERED: Senokot S 8.6-50 MG TAB PO PRN (21:36)
[2022-01-25] MEDS ORDERED: Guaifenesin DM 100-10/5 ML UDCUP PO PRN (21:36)
[2022-01-25] MEDS ORDERED: Bisacodyl 5 MG TAB PO PRN (21:36)
[2022-01-25] MEDS ORDERED: Acetaminophen 325 MG TAB PO PRN (21:36)
[2022-01-25] MEDS ORDERED: Bisacodyl 10 MG SUPP PR PRN (21:36)
[2022-01-25 23:01] VITALS: BMI 33.7
[2022-01-26] MEDS ORDERED: HYDROcodone/Acetaminophen 5/325 mg Tablet PO PRN (02:08)
[2022-01-26] MEDS ORDERED: Albuterol Sulfate 2.5 mg/3 ml Neb NEB PRN (02:18)
[2022-01-26 04:33] LABS: #Basophils 0.1 thou/uL (0.0-0.2); #Eosinphils 0.1 thou/uL (0.0-0.7); #Lymphocytes 2.5 thou/uL (1.20-3.40); %Basophils 0.4 % (0.0-1.0); %Eosinophils 0.7 % (0.0-10.0); %Lymphocytes 20.1 % (21.0-51.0); %Monocytes 7.8 % (0.0-10.0); Hemoglobin 11.8 g/dL (14.0-18.0); Mean Corpuscular HGB CONC 30.6 g/dL (32.0-36.0); Mean Corpuscular Hemoglobin 28.1 pg (27.0-31.0); Mean Platelet Volume 10.1 fL (7.4-10.4); Platelet Count 168 thou/uL (130-400); RBC Distribution Width 15.9 % (11.5-14.5); White Blood Cell (WBC) Count 12.7 thou/uL (4.8-10.8)
[2022-01-26 04:49] LABS: Anion Gap 18 mmol/L (10-20); BUN (Urea Nitrogen) 27 mg/dL (8.4-25.7); Calc. Creatinine Clearance 18 mL/min (70-130); Calcium 10.5 mg/dL (7.8-10.44); Carbon Dioxide 22 mmol/L (22-29); Chloride 103 mmol/L (98-107); Estimated GFR 9; Glucose 124 mg/dL (70-105); Potassium 4.1 mmol/L (3.5-5.1); Sodium 139 mmol/L (136-145)
[2022-01-26] MEDS ORDERED: Aspirin Chewable 81 MG TAB PO SCH (09:00)
[2022-01-26] MEDS ORDERED: predniSONE 5 MG TAB PO SCH (09:00)
[2022-01-26] MEDS ORDERED: Famotidine 20 MG TAB PO SCH (09:00)
[2022-01-26] MEDS ORDERED: Furosemide 40 MG TAB PO SCH (09:00)
[2022-01-26] MEDS ORDERED: Calcitriol 0.25 MCG CAP PO SCH (09:00)
[2022-01-26] MEDS ORDERED: Heparin 10,000 UNITS/ 10 ML VIAL ONE (09:23)
[2022-01-26] MEDS: Apixaban 5 MG TAB PO SCH ×2 (10:24→20:40)
[2022-01-26] MEDS: Carvedilol 25 MG TAB PO SCH ×2 (10:24→20:40)
[2022-01-26 16:18] VITALS: TEMP 97.5
[2022-01-26 20:39] VITALS: BP 122/80
[2022-01-26] MEDS ORDERED: Simvastatin 10 MG TAB PO SCH (21:00)
[2022-01-28] MEDS ORDERED: FLU VACC QS2022-23(6MOS UP)/PF 60 MCG/0.5 ML SYRINGE IM ONE (09:00)
== END 2022-01-26 20:54 | disposition home or self-care (01) ==
LOC: ERS 12:26 → ERHOLD 21:02 → 2NO 22:42
PROVIDERS: ADMIT Internal Medicine; ATTEND Internal Medicine
DX: I16.0 Hypertensive urgency (principal); I12.0 Hypertensive chronic kidney disease with stage 5 chronic kidney disease or end stage renal disease; E11.22 Type 2 diabetes mellitus with diabetic chronic kidney disease; N18.6 End stage renal disease; D63.1 Anemia in chronic kidney disease; D72.829 Elevated white blood cell count, unspecified; E11.51 Type 2 diabetes mellitus with diabetic peripheral angiopathy without gangrene; M10.9 Gout, unspecified; K21.9 Gastro-esophageal reflux disease without esophagitis; I44.4 Left anterior fascicular block; G47.33 Obstructive sleep apnea (adult) (pediatric); M19.90 Unspecified osteoarthritis, unspecified site; E66.9 Obesity, unspecified; Z68.33 Body mass index [BMI] 33.0-33.9, adult; Z91.199 Patient's noncompliance with other medical treatment and regimen due to unspecified reason; Z79.01 Long term (current) use of anticoagulants; Z79.52 Long term (current) use of systemic steroids; Z79.82 Long term (current) use of aspirin; Z79.899 Other long term (current) drug therapy; Z99.2 Dependence on renal dialysis; Z20.822 Contact with and (suspected) exposure to COVID-19
CPT/HCPCS: 36415; 80048; 80053; 84484; 85025; 90935; 93005; 96374; 96375; 96376; G0257; G0378; J0360; J1644; J7512; U0003; U0005

== ENCOUNTER 2022-02-27 12:01 | Inpatient (IN) | payer BC, MEDICARE ==
[2022-02-26 12:02] VITALS: BMI 34.7
[2022-02-27 13:38] LABS: #Eosinphils 0.1 thou/uL (0.0-0.7); #Lymphocytes 2.1 thou/uL (1.20-3.40); #Monocytes 1.6 thou/uL (0.11-0.59); #Neutrophils 14.4 thou/uL (1.40-6.50); %Basophils 0.1 % (0.0-1.0); %Eosinophils 0.7 % (0.0-10.0); %Lymphocytes 11.4 % (21.0-51.0); %Monocytes 8.9 % (0.0-10.0); %Neutrophils 78.9 % (42.0-75.0); Hemoglobin 9.2 g/dL (14.0-18.0); Mean Corpuscular HGB CONC 29.3 g/dL (32.0-36.0); Mean Corpuscular Hemoglobin 26.7 pg (27.0-31.0); Mean Corpuscular Volume 91.3 fl (78.0-98.0); Mean Platelet Volume 10.2 fL (7.4-10.4); Platelet Count 199 10x3/uL (130-400); RBC Distribution Width 15.4 % (11.5-14.5); Red Blood Cell (RBC) Count 3.46 mill/uL (4.70-6.10); White Blood Cell (WBC) Count 18.3 10x3/uL (4.8-10.8)
[2022-02-27] MEDS ORDERED: Ketamine 50 MG/ML (10ML VIAL) ONE (13:41)
[2022-02-27] MEDS ORDERED: fentaNYL PF 100 MCG/2 ML SYRINGE ONE (13:41)
[2022-02-27] MEDS ORDERED: Midazolam HCl 2 mg/2 ml Vial ONE (13:41)
[2022-02-27] MEDS ORDERED: Bupivacaine PF 0.5% 30 ML VIAL ONE (13:44)
[2022-02-27] MEDS ORDERED: Sodium Chloride 0.9% 100 ML ONE (13:51)
[2022-02-27] MEDS ORDERED: CEFAZOLIN 2 GM VIAL ONE (13:51)
[2022-02-27 13:55] LABS: Anion Gap 19 mmol/L (10-20); BUN (Urea Nitrogen) 36 mg/dL (8.4-25.7); Calc. Creatinine Clearance 16 mL/min (70-130); Calcium 10.6 mg/dL (7.8-10.44); Carbon Dioxide 26 mmol/L (22-29); Chloride 95 mmol/L (98-107); Estimated GFR 8; Glucose 141 mg/dL (70-105); Potassium 3.7 mmol/L (3.5-5.1); Sodium 136 mmol/L (136-145)
[2022-02-27] MEDS ORDERED: PHENYLEPHRINE-NS 100 MCG/ML 10 ML SYRINGE ONE (14:02)
[2022-02-27] MEDS ORDERED: PROPOFOL 200 MG/20 ML VIAL ONE (14:02)
[2022-02-27 14:15] LABS: Anisocytosis SLIGHT = 6-15 cells (100X) (0-5/hpf); Hypochromia SLIGHT = 6-15 cells (100X) (0-5/hpf); MDiff Complete? YES; Ovalocytes SLIGHT = 2-5 cells (100X) (0-1/hpf); Platelet Morphology Comment Appears Adequate; Polychromasia SLIGHT = 2-3 cells (100X) (0-2/hpf)
[2022-02-27] MEDS ORDERED: Promethazine HCl 25 MG/ML VIAL IVPB PRN (14:42)
[2022-02-27] MEDS ORDERED: Meperidine HCl/PF 25 MG/ML VIAL SLOW IVP PRN (14:42)
[2022-02-27] MEDS ORDERED: HYDROmorphone 2 MG/ML VIAL SLOW IVP PRN (14:42)
[2022-02-27] MEDS ORDERED: Lorazepam 2 MG/ML VIAL SLOW IVP PRN (15:04)
[2022-02-27] MEDS ORDERED: TETANUS, DIPHTHERIA TOX,ADULT (TDVAX) 0.5 ML VIAL IM ONE (15:04)
[2022-02-27] MEDS ORDERED: Morphine 4 MG/ML VIAL SLOW IVP PRN ×2 (15:04→15:25)
[2022-02-27] MEDS ORDERED: Ondansetron PF 4 MG/2 ML Vial IVP PRN (15:04)
[2022-02-27] MEDS ORDERED: hydrALAZINE 20 MG/ML VIAL SLOW IVP PRN (15:04)
[2022-02-27] MEDS ORDERED: Ondansetron ODT 4 MG TAB PO PRN (15:04)
[2022-02-27] MEDS ORDERED: hydrOXYzine 25 MG TAB PO PRN ×2 (15:11→17:40)
[2022-02-27] MEDS ORDERED: Albuterol 200 PUFF (6.7GM INHALER) INH PRN (15:11)
[2022-02-27] MEDS ORDERED: FERUMOXYTOL 510 MG/17 ML IV SCH (15:15)
[2022-02-27] MEDS ORDERED: Heparin 10,000 UNITS/ 10 ML VIAL CATH PRN (18:04)
[2022-02-27] MEDS ORDERED: Heparin 5,000 UNITS/ML VIAL CATH SCH (18:30)
[2022-02-27] MEDS: Carvedilol 25 MG TAB PO SCH (20:09)
[2022-02-27] MEDS: Losartan 25 MG TAB PO SCH (20:09)
[2022-02-27] MEDS: HYDROcodone/Acetaminophen 10/325 mg Tablet PO PRN (20:09)
[2022-02-27] MEDS: Simvastatin 10 MG TAB PO SCH (20:11)
[2022-02-27] MEDS ORDERED: Sevelamer Carbonate 800 MG TAB PO SCH (21:00)
[2022-02-28] MEDS: HYDROcodone/Acetaminophen 10/325 mg Tablet PO PRN ×4 (03:10→22:48)
[2022-02-28 06:52] LABS: #Eosinphils 0.2 thou/uL (0.0-0.7); #Lymphocytes 1.9 thou/uL (1.20-3.40); #Monocytes 1.2 thou/uL (0.11-0.59); %Basophils 0.1 % (0.0-1.0); %Eosinophils 1.1 % (0.0-10.0); %Lymphocytes 13.1 % (21.0-51.0); %Monocytes 8.3 % (0.0-10.0); %Neutrophils 77.4 % (42.0-75.0); Hemoglobin 8.4 g/dL (14.0-18.0); Mean Corpuscular HGB CONC 29.3 g/dL (32.0-36.0); Mean Corpuscular Hemoglobin 26.4 pg (27.0-31.0); Mean Corpuscular Volume 90.1 fl (78.0-98.0); Mean Platelet Volume 9.9 fL (7.4-10.4); Platelet Count 198 10x3/uL (130-400); RBC Distribution Width 15.3 % (11.5-14.5); Red Blood Cell (RBC) Count 3.19 mill/uL (4.70-6.10); White Blood Cell (WBC) Count 14.3 10x3/uL (4.8-10.8)
[2022-02-28 07:09] LABS: Anion Gap 16 mmol/L (10-20); BUN (Urea Nitrogen) 42 mg/dL (8.4-25.7); Calc. Creatinine Clearance 14 mL/min (70-130); Calcium 9.7 mg/dL (7.8-10.44); Carbon Dioxide 26 mmol/L (22-29); Chloride 98 mmol/L (98-107); Estimated GFR 7; Glucose 99 mg/dL (70-105); Potassium 3.8 mmol/L (3.5-5.1); Sodium 136 mmol/L (136-145)
[2022-02-28] MEDS: Famotidine 20 MG TAB PO SCH (08:21)
[2022-02-28] MEDS ORDERED: Heparin 10,000 UNITS/ 10 ML VIAL ONE (08:22)
[2022-02-28] MEDS: Sevelamer Carbonate 800 MG TAB PO SCH ×3 (08:23→16:38)
[2022-02-28] MEDS: Ferrous Sulfate 325 MG TAB PO SCH (08:23)
[2022-02-28] MEDS: Amlodipine 10 MG TAB PO SCH (08:23)
[2022-02-28] MEDS: predniSONE 5 MG TAB PO SCH (08:23)
[2022-02-28] MEDS: Calcitriol 0.25 MCG CAP PO SCH (08:24)
[2022-02-28] MEDS: Cholecalciferol 1,000 UNITS (25 MCG) TAB PO SCH (08:24)
[2022-02-28] MEDS: Folic Acid/Vit B Comp W-C PO SCH (08:24)
[2022-02-28] MEDS: Carvedilol 25 MG TAB PO SCH ×2 (08:24→22:47)
[2022-02-28] MEDS: Aspirin Chewable 81 MG TAB PO SCH (08:24)
[2022-02-28] MEDS: Cyanocobalamin (Vitamin B-12) 1,000 MCG TAB PO SCH (08:24)
[2022-02-28] MEDS ORDERED: Losartan 25 MG TAB PO SCH (09:00)
[2022-02-28] MEDS ORDERED: Allopurinol 100 MG TAB PO SCH (09:00)
[2022-02-28] MEDS ORDERED: Dextrose 5% in Water 1,000 ML IV PRN (11:55)
[2022-02-28] MEDS ORDERED: HumaLOG 300 UNITS/3 ML VIAL SC PRN (11:55)
[2022-02-28] MEDS ORDERED: Dextrose 50% Abboject 50 ML SYRINGE SLOW IVP PRN (11:55)
[2022-02-28] MEDS: Gabapentin 100 MG CAP PO SCH ×2 (14:14→22:47)
[2022-02-28] MEDS: traMADol HCl 50 MG TAB PO PRN (16:38)
[2022-02-28] MEDS ORDERED: Lidocaine 4% Topical Sol 50 ML BOT TOP PRN (17:13)
[2022-02-28 17:41] LABS: HBSAB Concentration Less than 8.00 mIU/mL; HBSAg Index 0.55 S/CO (0-0.99); Hep B Core Total Ab Non-Reactive (NonReactive); Hep B Core Total Index 0.18 S/CO (0-0.79); Hep B Surf AB Non-Reactive (NonReactive); Hep B Surf Ag Non-Reactive S/CO (NonReactive); Hep C IgG Ab Non-Reactive (NonReactive); Hep C Index 0.09 S/CO (0-0.79)
[2022-02-28] MEDS ORDERED: VANCOMYCIN 2 GRAM/500 ML BAG 2 GM in Premix Bag 1 BAG IVPB SCH (18:00)
[2022-02-28] MEDS ORDERED: Cefepime 1 GM in Sodium Chloride 0.9% 100 ML IVPB SCH ×2 (18:00→23:00)
[2022-02-28] MEDS ORDERED: VANCOMYCIN 1.25 GM/250 ML BAG 1.25 GM in Premix Bag 1 BAG IVPB SCH (21:00)
[2022-02-28] MEDS ORDERED: Cefepime 2 GM in Sodium Chloride 0.9% 100 ML IVPB SCH (21:00)
[2022-02-28] MEDS: Acetaminophen 325 MG TAB PO PRN (22:47)
[2022-02-28] MEDS: Losartan 25 MG TAB PO SCH (22:47)
[2022-02-28] MEDS: Simvastatin 10 MG TAB PO SCH (22:59)
[2022-02-28] MEDS ORDERED: Epoetin (ESRD) 20,000 UNITS/ML SC SCH (23:00)
[2022-03-01] MEDS: traMADol HCl 50 MG TAB PO PRN ×2 (06:30→19:59)
[2022-03-01] MEDS: Amlodipine 10 MG TAB PO SCH (08:27)
[2022-03-01] MEDS: Sevelamer Carbonate 800 MG TAB PO SCH ×3 (08:28→16:53)
[2022-03-01] MEDS: Famotidine 20 MG TAB PO SCH (08:28)
[2022-03-01] MEDS: Ferrous Sulfate 325 MG TAB PO SCH (08:28)
[2022-03-01] MEDS: Cholecalciferol 1,000 UNITS (25 MCG) TAB PO SCH (08:28)
[2022-03-01] MEDS: Aspirin Chewable 81 MG TAB PO SCH (08:28)
[2022-03-01] MEDS: Folic Acid/Vit B Comp W-C PO SCH (08:29)
[2022-03-01] MEDS: Gabapentin 100 MG CAP PO SCH ×3 (08:29→19:59)
[2022-03-01] MEDS: Cyanocobalamin (Vitamin B-12) 1,000 MCG TAB PO SCH (08:29)
[2022-03-01] MEDS: predniSONE 5 MG TAB PO SCH (08:29)
[2022-03-01] MEDS: Carvedilol 25 MG TAB PO SCH ×2 (08:29→19:59)
[2022-03-01] MEDS ORDERED: Allopurinol 100 MG TAB PO SCH (09:00)
[2022-03-01] MEDS: HYDROcodone/Acetaminophen 10/325 mg Tablet PO PRN ×2 (12:24→16:53)
[2022-03-01] MEDS ORDERED: Vancomycin Dialysis Sliding Scale (Wt > 99) FS SCH (12:45)
[2022-03-01] MEDS: Acetaminophen 325 MG TAB PO PRN (19:58)
[2022-03-01] MEDS: Apixaban 5 MG TAB PO SCH (19:59)
[2022-03-01] MEDS: Simvastatin 10 MG TAB PO SCH (19:59)
[2022-03-01] MEDS: Losartan 25 MG TAB PO SCH (19:59)
[2022-03-02 07:30] LABS: #Eosinphils 0.2 thou/uL (0.0-0.7); #Lymphocytes 1.9 thou/uL (1.20-3.40); #Monocytes 1.2 thou/uL (0.11-0.59); %Eosinophils 1.6 % (0.0-10.0); %Lymphocytes 14.3 % (21.0-51.0); %Monocytes 8.7 % (0.0-10.0); %Neutrophils 75.4 % (42.0-75.0); Hemoglobin 9.1 g/dL (14.0-18.0); Mean Corpuscular HGB CONC 30.2 g/dL (32.0-36.0); Mean Corpuscular Hemoglobin 27.4 pg (27.0-31.0); Mean Corpuscular Volume 90.9 fl (78.0-98.0); Mean Platelet Volume 8.9 fL (7.4-10.4); Platelet Count 224 10x3/uL (130-400); RBC Distribution Width 15.4 % (11.5-14.5); Red Blood Cell (RBC) Count 3.31 mill/uL (4.70-6.10); White Blood Cell (WBC) Count 13.2 10x3/uL (4.8-10.8)
[2022-03-02] MEDS: Cholecalciferol 1,000 UNITS (25 MCG) TAB PO SCH (07:32)
[2022-03-02] MEDS: Famotidine 20 MG TAB PO SCH (07:32)
[2022-03-02] MEDS: predniSONE 5 MG TAB PO SCH (07:32)
[2022-03-02] MEDS: Calcitriol 0.25 MCG CAP PO SCH (07:32)
[2022-03-02] MEDS: Cyanocobalamin (Vitamin B-12) 1,000 MCG TAB PO SCH (07:32)
[2022-03-02] MEDS: Folic Acid/Vit B Comp W-C PO SCH (07:32)
[2022-03-02] MEDS: Apixaban 5 MG TAB PO SCH ×2 (07:33→20:03)
[2022-03-02] MEDS: Carvedilol 25 MG TAB PO SCH ×2 (07:33→20:04)
[2022-03-02] MEDS: Gabapentin 100 MG CAP PO SCH ×5 (07:33→20:09)
[2022-03-02] MEDS: Ferrous Sulfate 325 MG TAB PO SCH (07:33)
[2022-03-02] MEDS: Aspirin Chewable 81 MG TAB PO SCH (07:33)
[2022-03-02] MEDS: Amlodipine 10 MG TAB PO SCH (07:33)
[2022-03-02] MEDS: Sevelamer Carbonate 800 MG TAB PO SCH ×3 (07:33→17:09)
[2022-03-02] MEDS: traMADol HCl 50 MG TAB PO PRN ×2 (07:33→20:01)
[2022-03-02 07:43] LABS: Anion Gap 14 mmol/L (10-20); BUN (Urea Nitrogen) 35 mg/dL (8.4-25.7); Calc. Creatinine Clearance 17 mL/min (70-130); Calcium 10.1 mg/dL (7.8-10.44); Carbon Dioxide 26 mmol/L (22-29); Chloride 100 mmol/L (98-107); Estimated GFR 9; Glucose 124 mg/dL (70-105); Sodium 136 mmol/L (136-145)
[2022-03-02] MEDS ORDERED: Heparin 10,000 UNITS/ 10 ML VIAL ONE (08:58)
[2022-03-02] MEDS: HYDROcodone/Acetaminophen 10/325 mg Tablet PO PRN ×2 (14:25→21:13)
[2022-03-02] MEDS ORDERED: Morphine 4 MG/ML VIAL SLOW IVP SCH (15:15)
[2022-03-02] MEDS: Losartan 25 MG TAB PO SCH (20:06)
[2022-03-02] MEDS: Simvastatin 10 MG TAB PO SCH (20:12)
[2022-03-03] MEDS: HYDROcodone/Acetaminophen 10/325 mg Tablet PO PRN ×3 (05:39→18:36)
[2022-03-03] MEDS: Amlodipine 10 MG TAB PO SCH (09:00)
[2022-03-03] MEDS: Sevelamer Carbonate 800 MG TAB PO SCH ×3 (09:00→17:25)
[2022-03-03] MEDS: Ferrous Sulfate 325 MG TAB PO SCH (09:00)
[2022-03-03] MEDS: predniSONE 5 MG TAB PO SCH (09:00)
[2022-03-03] MEDS: Carvedilol 25 MG TAB PO SCH ×2 (09:00→20:15)
[2022-03-03] MEDS: Famotidine 20 MG TAB PO SCH (09:00)
[2022-03-03] MEDS: Aspirin Chewable 81 MG TAB PO SCH (09:01)
[2022-03-03] MEDS: Folic Acid/Vit B Comp W-C PO SCH (09:01)
[2022-03-03] MEDS: Apixaban 5 MG TAB PO SCH ×2 (09:01→20:14)
[2022-03-03] MEDS: Cyanocobalamin (Vitamin B-12) 1,000 MCG TAB PO SCH (09:01)
[2022-03-03] MEDS: Cholecalciferol 1,000 UNITS (25 MCG) TAB PO SCH (09:01)
[2022-03-03] MEDS: traMADol HCl 50 MG TAB PO PRN ×2 (09:01→20:15)
[2022-03-03] MEDS: Gabapentin 100 MG CAP PO SCH ×2 (17:24→20:14)
[2022-03-03] MEDS: Losartan 25 MG TAB PO SCH (20:14)
[2022-03-03] MEDS: Simvastatin 10 MG TAB PO SCH (20:17)
[2022-03-03 22:15] VITALS: TEMP 99
[2022-03-04] MEDS: HYDROcodone/Acetaminophen 10/325 mg Tablet PO PRN ×3 (05:36→15:34)
[2022-03-04 08:56] VITALS: BP 137/91
[2022-03-04] MEDS: predniSONE 5 MG TAB PO SCH (09:09)
[2022-03-04] MEDS: Cyanocobalamin (Vitamin B-12) 1,000 MCG TAB PO SCH (09:09)
[2022-03-04] MEDS: Amlodipine 10 MG TAB PO SCH (09:09)
[2022-03-04] MEDS: Folic Acid/Vit B Comp W-C PO SCH (09:09)
[2022-03-04] MEDS: Gabapentin 100 MG CAP PO SCH ×2 (09:09→15:34)
[2022-03-04] MEDS: Aspirin Chewable 81 MG TAB PO SCH (09:09)
[2022-03-04] MEDS: Carvedilol 25 MG TAB PO SCH (09:09)
[2022-03-04] MEDS: Apixaban 5 MG TAB PO SCH (09:09)
[2022-03-04] MEDS: Famotidine 20 MG TAB PO SCH (09:09)
[2022-03-04] MEDS: Cholecalciferol 1,000 UNITS (25 MCG) TAB PO SCH (09:09)
[2022-03-04] MEDS: Sevelamer Carbonate 800 MG TAB PO SCH ×3 (09:10→17:54)
[2022-03-04] MEDS: traMADol HCl 50 MG TAB PO PRN (09:10)
[2022-03-04] MEDS: Ferrous Sulfate 325 MG TAB PO SCH (09:10)
== END 2022-03-04 17:34 | disposition home or self-care (01) | DRG 239 ==
LOC: SDC 12:01 → T4-A 16:30
PROVIDERS: ADMIT Specialist; ATTEND Specialist
PROC: 0Y6M0Z9 Detachment at Right Foot, Partial 1st Ray, Open Approach (ICD-10-PCS; principal; 2022-02-27)
PROC: 0Y6M0ZB Detachment at Right Foot, Partial 2nd Ray, Open Approach (ICD-10-PCS; 2022-02-27)
PROC: 0Y6M0ZC Detachment at Right Foot, Partial 3rd Ray, Open Approach (ICD-10-PCS; 2022-02-27)
PROC: 5A1D70Z Performance of Urinary Filtration, Intermittent, Less than 6 Hours Per Day (ICD-10-PCS; 2022-02-28)
DX: E11.52 Type 2 diabetes mellitus with diabetic peripheral angiopathy with gangrene (principal); N18.6 End stage renal disease; I12.0 Hypertensive chronic kidney disease with stage 5 chronic kidney disease or end stage renal disease; I70.261 Atherosclerosis of native arteries of extremities with gangrene, right leg; E11.22 Type 2 diabetes mellitus with diabetic chronic kidney disease; M10.9 Gout, unspecified; G89.4 Chronic pain syndrome; F41.9 Anxiety disorder, unspecified; K21.9 Gastro-esophageal reflux disease without esophagitis; G47.33 Obstructive sleep apnea (adult) (pediatric); D63.1 Anemia in chronic kidney disease; E11.621 Type 2 diabetes mellitus with foot ulcer; L97.519 Non-pressure chronic ulcer of other part of right foot with unspecified severity; E66.9 Obesity, unspecified; E21.3 Hyperparathyroidism, unspecified; Z79.01 Long term (current) use of anticoagulants; Z79.899 Other long term (current) drug therapy; Z79.52 Long term (current) use of systemic steroids; Z98.890 Other specified postprocedural states; Z99.2 Dependence on renal dialysis; Z68.34 Body mass index [BMI] 34.0-34.9, adult
CPT/HCPCS: 36415; 36416; 80048; 85025; 86704; 87070; 87076; 87077; 87186; 87205; 87340; 88305; 88311; 97139; J0360; J0692; J1644; J2060; J2250; J2270; J2704; J3370; J3490; J7512; Q4081; S0020; U0003; U0005

== ENCOUNTER 2022-05-22 13:46 | Outpatient (CLI) | payer BC, MEDICARE | END 2022-05-22 13:47 | disposition home or self-care (01) | LOC: ULT 13:46 | PROVIDERS: ATTEND Nurse Practitioner Family | DX: E11.621 Type 2 diabetes mellitus with foot ulcer (principal); L97.514 Non-pressure chronic ulcer of other part of right foot with necrosis of bone; I10 Essential (primary) hypertension | CPT/HCPCS: 93306 ==

== ENCOUNTER 2022-06-05 07:12 | Day surgery (SDC) | payer BC, MEDICARE ==
[2022-06-04 12:07] VITALS: BMI 33.6
[2022-06-05 09:33] LABS: Anion Gap 16 mmol/L (10-20); BUN (Urea Nitrogen) 27 mg/dL (8.4-25.7); Calc. Creatinine Clearance 15 mL/min (70-130); Calcium 10.2 mg/dL (7.8-10.44); Carbon Dioxide 24 mmol/L (22-29); Chloride 99 mmol/L (98-107); Estimated GFR 8; Glucose 91 mg/dL (70-105); Potassium 4.2 mmol/L (3.5-5.1); Sodium 135 mmol/L (136-145)
[2022-06-05] MEDS ORDERED: Ondansetron PF 4 MG/2 ML Vial ONE (09:42)
[2022-06-05] MEDS ORDERED: PROPOFOL 200 MG/20 ML VIAL ONE (09:42)
== END 2022-06-05 11:55 | disposition home or self-care (01) ==
LOC: SDC 07:12
PROVIDERS: ATTEND Internal Medicine Gastroenterology
PROC: 0DB58ZX Excision of Esophagus, Via Natural or Artificial Opening Endoscopic, Diagnostic (ICD-10-PCS; principal; 2022-06-05)
PROC: 0DBK8ZX Excision of Ascending Colon, Via Natural or Artificial Opening Endoscopic, Diagnostic (ICD-10-PCS; principal; 2022-06-05)
PROC: 0W3P8ZZ Control Bleeding in Gastrointestinal Tract, Via Natural or Artificial Opening Endoscopic (ICD-10-PCS; principal; 2022-06-05)
PROC: 0DB68ZX Excision of Stomach, Via Natural or Artificial Opening Endoscopic, Diagnostic (ICD-10-PCS; principal; 2022-06-05)
DX: D50.0 Iron deficiency anemia secondary to blood loss (chronic) (principal); D12.2 Benign neoplasm of ascending colon; K31.9 Disease of stomach and duodenum, unspecified; B37.81 Candidal esophagitis; K31.811 Angiodysplasia of stomach and duodenum with bleeding; K57.30 Diverticulosis of large intestine without perforation or abscess without bleeding; I12.0 Hypertensive chronic kidney disease with stage 5 chronic kidney disease or end stage renal disease; E11.22 Type 2 diabetes mellitus with diabetic chronic kidney disease; N18.6 End stage renal disease; M19.90 Unspecified osteoarthritis, unspecified site; G47.30 Sleep apnea, unspecified; E11.51 Type 2 diabetes mellitus with diabetic peripheral angiopathy without gangrene; Z86.010 Personal history of colon polyps; Z79.01 Long term (current) use of anticoagulants; Z79.52 Long term (current) use of systemic steroids; Z79.82 Long term (current) use of aspirin; Z79.899 Other long term (current) drug therapy; Z99.2 Dependence on renal dialysis
CPT/HCPCS: 36415; 80048; 88305; J2405; J2704

== ENCOUNTER 2022-06-14 08:55 | Inpatient (IN) | payer BC, MEDICARE ==
[~2022-06-14 08:55] MED LIST: Heparin 10,000 UNITS/ 10 ML VIAL ONE
[2022-06-14 09:55] LABS: #Lymphocytes 2.1 thou/uL (1.20-3.40); #Monocytes 0.5 thou/uL (0.11-0.59); %Basophils 0.1 % (0.0-1.0); %Eosinophils 0.3 % (0.0-10.0); %Lymphocytes 19.4 % (21.0-51.0); %Monocytes 4.7 % (0.0-10.0); %Neutrophils 75.5 % (42.0-75.0); Hemoglobin 4.6 g/dL (14.0-18.0); Mean Corpuscular HGB CONC 31.6 g/dL (32.0-36.0); Mean Corpuscular Hemoglobin 27.9 pg (27.0-31.0); Mean Corpuscular Volume 88.3 fl (78.0-98.0); Mean Platelet Volume 7.5 fL (7.4-10.4); Platelet Count 293 10x3/uL (130-400); RBC Distribution Width 18.8 % (11.5-14.5); Red Blood Cell (RBC) Count 1.63 mill/uL (4.70-6.10); Reflex for Review?? NO; White Blood Cell (WBC) Count 10.6 10x3/uL (4.8-10.8)
[2022-06-14 10:06] LABS: ALT (SGPT) 9 U/L (8-55); AST (SGOT) 9 U/L (5-34); Albumin 3.5 g/dL (3.5-5.0); Alkaline Phosphatase 51 U/L (40-110); Anion Gap 22 mmol/L (10-20); Bilirubin, Total 0.4 mg/dL (0.2-1.2); Calc. Creatinine Clearance 0 mL/min (70-130); Calcium 9.9 mg/dL (7.8-10.44); Carbon Dioxide 14 mmol/L (22-29); Chloride 105 mmol/L (98-107); Estimated GFR 4; Globulin 2.1 g/dL (2.4-3.5); Glucose 172 mg/dL (70-105); Lipase 26 U/L (8-78); Magnesium 2.5 mg/dL (1.6-2.6); Potassium 5.7 mmol/L (3.5-5.1); Protein, Total 5.6 g/dL (6.0-8.3); Sodium 135 mmol/L (136-145)
[2022-06-14 10:08] LABS: INR-International Normal Ratio 1.6; PTT 32.3 sec (22.9-36.1); Prothrombin Time 19.9 sec (12.0-14.7)
[2022-06-14] MEDS ORDERED: Acetaminophen 500 MG TAB ONE (10:18)
[2022-06-14] MEDS ORDERED: diphenhydrAMINE 50 MG/ML VIAL ONE (10:18)
[2022-06-14] MEDS ORDERED: Pantoprazole 40 MG VIAL ONE (10:18)
[2022-06-14 10:20] LABS: BUN (Urea Nitrogen) 147 mg/dL (8.4-25.7)
[2022-06-14 10:35] LABS: Bacteria/HPF None Seen HPF (None Seen); Bilirubin Negative (Negative); Blood, Urine Trace (Negative); Clarity Clear (Clear); Glucose, Urine (Dipstick) 200 mg/dL (Negative); Ketone, Urine Negative (Negative); Leukocyte Negative Leu/uL (Negative); Nitrite Negative (Negative); Protein, Urine (Dipstick) 100 mg/dL (Neg-Trace); RBC/HPF None Seen HPF (0-3); Specific Gravity, Urine 1.014 (1.002-1.036); Squamous Epithelial 0-3 HPF (0-3); Urobilinogen Normal mg/dL (Less than 2); WBC/HPF 0-3 HPF (0-3); pH, Urine 5.5 (5.0-9.0)
[2022-06-14] MEDS ORDERED: Pantoprazole 80 MG in Sodium Chloride 0.9% 100 ML IVPB SCH (10:45)
[2022-06-14] MEDS ORDERED: Calcium Chloride 13.6 MEQ in Sodium Chloride 0.9% 100 ML IVPB SCH (10:45)
[2022-06-14] MEDS ORDERED: Pantoprazole 80 MG, Admixture Fee 1 EACH in Sodium Chloride 0.9% 100 ML IVPB SCH (10:45)
[2022-06-14] MEDS ORDERED: Sodium Bicarb 50 MEQ/50 ML VIAL ONE (11:16)
[2022-06-14] MEDS ORDERED: Calcium Chloride 1 GM/10 ML Abboject SYRINGE ONE (11:16)
[2022-06-14] MEDS ORDERED: Iopamidol-370 76% 500 ML 1 ML ONE (12:24)
[2022-06-14] MEDS ORDERED: Acetaminophen 325 MG TAB PO PRN (13:24)
[2022-06-14] MEDS ORDERED: Ondansetron PF 4 MG/2 ML Vial IVP PRN (13:24)
[2022-06-14] MEDS ORDERED: Ondansetron ODT 4 MG TAB PO PRN (13:24)
[2022-06-14] MEDS ORDERED: Acetaminophen 650 MG Suppository PR PRN (13:24)
[2022-06-14 13:42] LABS: HBSAB Concentration Less than 8.00 mIU/mL; HBSAg Index 0.41 S/CO (0-0.99); Hep B Core Total Ab Non-Reactive (NonReactive); Hep B Core Total Index 0.08 S/CO (0-0.79); Hep B Surf AB Non-Reactive (NonReactive); Hep B Surf Ag Non-Reactive S/CO (NonReactive); Hep C IgG Ab Non-Reactive (NonReactive); Hep C Index 0.09 S/CO (0-0.79)
[2022-06-14] MEDS ORDERED: Dextrose 50% Abboject 50 ML SYRINGE SLOW IVP PRN (13:42)
[2022-06-14] MEDS ORDERED: Dextrose 5% in Water 1,000 ML IV PRN (13:42)
[2022-06-14] MEDS ORDERED: Insulin Regular 300 UNITS/3 ML VIAL SC PRN ×2 (13:42)
[2022-06-14 17:42] VITALS: BMI 32.5
[2022-06-14 20:01] LABS: Hemoglobin 5.6 g/dL (14.0-18.0)
[2022-06-14 20:18] LABS: Anion Gap 20 mmol/L (10-20); Calc. Creatinine Clearance 8 mL/min (70-130); Calcium 10.2 mg/dL (7.8-10.44); Carbon Dioxide 13 mmol/L (22-29); Chloride 106 mmol/L (98-107); Estimated GFR 4; Glucose 162 mg/dL (70-105); Potassium 5.1 mmol/L (3.5-5.1); Sodium 134 mmol/L (136-145)
[2022-06-14 20:30] LABS: BUN (Urea Nitrogen) 121 mg/dL (8.4-25.7)
[2022-06-15] MEDS: Pantoprazole 40 MG VIAL IVP SCH ×3 (01:09→19:55)
[2022-06-15 02:03] LABS: Hemoglobin 7.6 g/dL (14.0-18.0)
[2022-06-15 02:04] LABS: #Eosinphils 0.2 thou/uL (0.0-0.7); #Lymphocytes 1.6 thou/uL (1.20-3.40); #Monocytes 0.9 thou/uL (0.11-0.59); #Neutrophils 6.3 thou/uL (1.40-6.50); %Basophils 0.4 % (0.0-1.0); %Eosinophils 1.8 % (0.0-10.0); %Lymphocytes 17.7 % (21.0-51.0); %Monocytes 10.4 % (0.0-10.0); %Neutrophils 69.6 % (42.0-75.0); Hemoglobin 7.5 g/dL (14.0-18.0); Mean Corpuscular HGB CONC 33.4 g/dL (32.0-36.0); Mean Corpuscular Hemoglobin 29.8 pg (27.0-31.0); Mean Corpuscular Volume 89.2 fl (78.0-98.0); Mean Platelet Volume 7.3 fL (7.4-10.4); Platelet Count 307 10x3/uL (130-400); RBC Distribution Width 16.1 % (11.5-14.5); White Blood Cell (WBC) Count 9.1 10x3/uL (4.8-10.8)
[2022-06-15] MEDS: HYDROcodone/Acetaminophen 5/325 mg Tablet PO PRN ×3 (02:29→19:55)
[2022-06-15 03:10] LABS: Anion Gap 17 mmol/L (10-20); BUN (Urea Nitrogen) 52 mg/dL (8.4-25.7); Calc. Creatinine Clearance 18 mL/min (70-130); Calcium 9.3 mg/dL (7.8-10.44); Carbon Dioxide 23 mmol/L (22-29); Chloride 100 mmol/L (98-107); Estimated GFR 10; Glucose 122 mg/dL (70-105); Potassium 3.1 mmol/L (3.5-5.1); Sodium 137 mmol/L (136-145)
[2022-06-15 08:25] LABS: Hemoglobin 7.3 g/dL (14.0-18.0)
[2022-06-15] MEDS ORDERED: Potassium Chloride 20 MEQ TAB PO SCH (08:30)
[2022-06-15] MEDS ORDERED: PROPOFOL 200 MG/20 ML VIAL ONE (12:26)
[2022-06-16 05:15] LABS: #Eosinphils 0.2 thou/uL (0.0-0.7); #Lymphocytes 1.9 thou/uL (1.20-3.40); %Basophils 0.3 % (0.0-1.0); %Eosinophils 2.2 % (0.0-10.0); %Lymphocytes 18.6 % (21.0-51.0); %Monocytes 10.3 % (0.0-10.0); %Neutrophils 68.6 % (42.0-75.0); Hemoglobin 7.7 g/dL (14.0-18.0); Mean Corpuscular HGB CONC 32.5 g/dL (32.0-36.0); Mean Corpuscular Hemoglobin 29.6 pg (27.0-31.0); Mean Platelet Volume 7.8 fL (7.4-10.4); Platelet Count 289 10x3/uL (130-400); RBC Distribution Width 16.3 % (11.5-14.5); White Blood Cell (WBC) Count 10.1 10x3/uL (4.8-10.8)
[2022-06-16 05:39] LABS: Anion Gap 12 mmol/L (10-20); BUN (Urea Nitrogen) 58 mg/dL (8.4-25.7); Calc. Creatinine Clearance 13 mL/min (70-130); Calcium 9.8 mg/dL (7.8-10.44); Carbon Dioxide 25 mmol/L (22-29); Chloride 104 mmol/L (98-107); Estimated GFR 7; Glucose 89 mg/dL (70-105); Potassium 4.5 mmol/L (3.5-5.1); Sodium 136 mmol/L (136-145)
[2022-06-16] MEDS ORDERED: Calcitriol 0.25 MCG CAP PO SCH (07:30)
[2022-06-16] MEDS ORDERED: Allopurinol 300 MG TAB PO SCH (07:30)
[2022-06-16] MEDS ORDERED: Heparin 10,000 UNITS/ 10 ML VIAL ONE (08:47)
[2022-06-16] MEDS ORDERED: Non-Formulary Item 1 EACH (Mecobalamin [B12 Active] 1,000 MCG Tab.Chew) PO SCH (09:00)
[2022-06-16] MEDS ORDERED: Amlodipine 5 MG TAB PO SCH (09:00)
[2022-06-16] MEDS ORDERED: Epoetin (ESRD) 20,000 UNITS/ML IVP SCH (09:30)
[2022-06-16] MEDS: Gabapentin 300 MG CAP PO SCH ×2 (10:41→21:12)
[2022-06-16] MEDS: Amlodipine 10 MG TAB PO SCH ×2 (10:41→13:20)
[2022-06-16] MEDS: Folic Acid/Vit B Comp W-C PO SCH (10:41)
[2022-06-16] MEDS: Sevelamer Carbonate 800 MG TAB PO SCH ×3 (10:41→16:35)
[2022-06-16] MEDS: Pantoprazole 40 MG VIAL IVP SCH ×2 (10:42→21:13)
[2022-06-16] MEDS: Cyanocobalamin (Vitamin B-12) 1,000 MCG TAB PO SCH (10:42)
[2022-06-16] MEDS ORDERED: EPOETIN ALFA-EPBX (ESRD) 10,000 UNIT/ML VIAL IVP SCH (12:00)
[2022-06-16 14:27] LABS: Hemoglobin 9.2 g/dL (14.0-18.0)
[2022-06-16] MEDS: HYDROcodone/Acetaminophen 5/325 mg Tablet PO PRN ×2 (16:35→21:13)
[2022-06-16] MEDS ORDERED: Pravastatin Sodium 20 MG TAB PO SCH (21:00)
[2022-06-16] MEDS: Simvastatin 10 MG TAB PO SCH (21:12)
[2022-06-16] MEDS ORDERED: hydrOXYzine 25 MG TAB PO PRN (21:29)
[2022-06-16] MEDS: hydrOXYzine 25 MG TAB PO PRN (22:22)
[2022-06-17 06:33] LABS: #Eosinphils 0.2 thou/uL (0.0-0.7); #Monocytes 1.2 thou/uL (0.11-0.59); #Neutrophils 6.3 thou/uL (1.40-6.50); %Basophils 0.2 % (0.0-1.0); %Eosinophils 2.5 % (0.0-10.0); %Lymphocytes 20.7 % (21.0-51.0); %Monocytes 12.1 % (0.0-10.0); %Neutrophils 64.4 % (42.0-75.0); Hemoglobin 9.1 g/dL (14.0-18.0); Mean Corpuscular HGB CONC 33.1 g/dL (32.0-36.0); Mean Corpuscular Hemoglobin 30.3 pg (27.0-31.0); Mean Corpuscular Volume 91.5 fl (78.0-98.0); Mean Platelet Volume 7.9 fL (7.4-10.4); Platelet Count 290 10x3/uL (130-400); RBC Distribution Width 15.9 % (11.5-14.5); Red Blood Cell (RBC) Count 2.99 mill/uL (4.70-6.10); White Blood Cell (WBC) Count 9.8 10x3/uL (4.8-10.8)
[2022-06-17 07:00] LABS: Anion Gap 15 mmol/L (10-20); BUN (Urea Nitrogen) 31 mg/dL (8.4-25.7); Calc. Creatinine Clearance 17 mL/min (70-130); Calcium 10.2 mg/dL (7.8-10.44); Carbon Dioxide 25 mmol/L (22-29); Chloride 101 mmol/L (98-107); Estimated GFR 10; Glucose 92 mg/dL (70-105); Potassium 3.8 mmol/L (3.5-5.1); Sodium 137 mmol/L (136-145)
[2022-06-17] MEDS: Cyanocobalamin (Vitamin B-12) 1,000 MCG TAB PO SCH (09:48)
[2022-06-17] MEDS: Sevelamer Carbonate 800 MG TAB PO SCH ×3 (09:48→19:02)
[2022-06-17] MEDS: Folic Acid/Vit B Comp W-C PO SCH (09:48)
[2022-06-17] MEDS: Amlodipine 10 MG TAB PO SCH (09:48)
[2022-06-17] MEDS: Gabapentin 300 MG CAP PO SCH ×2 (09:49→20:46)
[2022-06-17] MEDS: Pantoprazole 40 MG VIAL IVP SCH (10:09)
[2022-06-17] MEDS: HYDROcodone/Acetaminophen 5/325 mg Tablet PO PRN (20:45)
[2022-06-17] MEDS: hydrOXYzine 25 MG TAB PO PRN (20:45)
[2022-06-17] MEDS: Carvedilol 25 MG TAB PO SCH (20:45)
[2022-06-17] MEDS: Simvastatin 10 MG TAB PO SCH (20:46)
[2022-06-18 03:54] LABS: #Eosinphils 0.2 thou/uL (0.0-0.7); #Lymphocytes 1.8 thou/uL (1.20-3.40); #Monocytes 1.1 thou/uL (0.11-0.59); #Neutrophils 6.1 thou/uL (1.40-6.50); %Basophils 0.3 % (0.0-1.0); %Eosinophils 2.3 % (0.0-10.0); %Lymphocytes 19.7 % (21.0-51.0); %Monocytes 11.5 % (0.0-10.0); %Neutrophils 66.2 % (42.0-75.0); Hemoglobin 8.3 g/dL (14.0-18.0); Mean Corpuscular HGB CONC 32.3 g/dL (32.0-36.0); Mean Corpuscular Hemoglobin 29.8 pg (27.0-31.0); Mean Corpuscular Volume 92.2 fl (78.0-98.0); Mean Platelet Volume 7.6 fL (7.4-10.4); Platelet Count 260 10x3/uL (130-400); RBC Distribution Width 15.3 % (11.5-14.5); Red Blood Cell (RBC) Count 2.77 mill/uL (4.70-6.10); White Blood Cell (WBC) Count 9.3 10x3/uL (4.8-10.8)
[2022-06-18 04:09] LABS: Anion Gap 14 mmol/L (10-20); BUN (Urea Nitrogen) 40 mg/dL (8.4-25.7); Calc. Creatinine Clearance 13 mL/min (70-130); Carbon Dioxide 25 mmol/L (22-29); Chloride 100 mmol/L (98-107); Estimated GFR 7; Glucose 134 mg/dL (70-105); Potassium 4.2 mmol/L (3.5-5.1); Sodium 135 mmol/L (136-145)
[2022-06-18] MEDS: Carvedilol 25 MG TAB PO SCH ×2 (08:17→21:00)
[2022-06-18] MEDS ORDERED: Heparin 10,000 UNITS/ 10 ML VIAL ONE (08:42)
[2022-06-18] MEDS ORDERED: Calcitriol 0.25 MCG CAP PO SCH (09:00)
[2022-06-18] MEDS ORDERED: EPOETIN ALFA-EPBX (ESRD) 10,000 UNIT/ML VIAL IVP SCH (12:00)
[2022-06-18] MEDS: HYDROcodone/Acetaminophen 5/325 mg Tablet PO PRN ×2 (16:15→21:08)
[2022-06-18] MEDS: Ferrous Sulfate 325 MG TAB PO SCH (16:51)
[2022-06-18] MEDS: Sevelamer Carbonate 800 MG TAB PO SCH ×2 (16:52→18:24)
[2022-06-18] MEDS: Amlodipine 10 MG TAB PO SCH (16:52)
[2022-06-18] MEDS: Aspirin Chewable 81 MG TAB PO SCH (16:52)
[2022-06-18] MEDS: Folic Acid/Vit B Comp W-C PO SCH (16:53)
[2022-06-18] MEDS: Cyanocobalamin (Vitamin B-12) 1,000 MCG TAB PO SCH (16:53)
[2022-06-18] MEDS: Losartan 25 MG TAB PO SCH (16:53)
[2022-06-18] MEDS: Gabapentin 300 MG CAP PO SCH ×2 (16:53→21:00)
[2022-06-18] MEDS ORDERED: CEFAZOLIN 2 GM in Sodium Chloride 0.9% 100 ML IVPB SCH (19:30)
[2022-06-18] MEDS: Simvastatin 10 MG TAB PO SCH (21:01)
[2022-06-18] MEDS: hydrOXYzine 25 MG TAB PO PRN (21:01)
[2022-06-19] MEDS: Carvedilol 25 MG TAB PO SCH (08:16)
[2022-06-19] MEDS: Gabapentin 300 MG CAP PO SCH (08:16)
[2022-06-19] MEDS: Sevelamer Carbonate 800 MG TAB PO SCH ×3 (08:16→17:21)
[2022-06-19] MEDS: Folic Acid/Vit B Comp W-C PO SCH (08:16)
[2022-06-19] MEDS: Cyanocobalamin (Vitamin B-12) 1,000 MCG TAB PO SCH (08:17)
[2022-06-19] MEDS: Ferrous Sulfate 325 MG TAB PO SCH (08:17)
[2022-06-19] MEDS: Losartan 25 MG TAB PO SCH (08:17)
[2022-06-19] MEDS: Aspirin Chewable 81 MG TAB PO SCH (08:17)
[2022-06-19] MEDS: Amlodipine 10 MG TAB PO SCH (08:17)
[2022-06-19] MEDS: HYDROcodone/Acetaminophen 5/325 mg Tablet PO PRN ×3 (08:17→17:21)
[2022-06-19] MEDS ORDERED: Allopurinol 100 MG TAB PO SCH (09:00)
[2022-06-19] MEDS ORDERED: Bupivacaine HCl 0.5%/Epinephrine 1:200,000/PF 30 ml Vial ONE (09:42)
[2022-06-19] MEDS ORDERED: Heparin 10,000 UNITS/ 10 ML VIAL ONE (09:42)
[2022-06-19] MEDS ORDERED: Lidocaine 2% PF 5 ML VIAL ONE (09:42)
[2022-06-19] MEDS ORDERED: fentaNYL PF 100 MCG/2 ML SYRINGE ONE (10:03)
[2022-06-19] MEDS ORDERED: Propofol 1,000 MG/100 ML VIAL IV ONE (10:04)
[2022-06-19] MEDS ORDERED: Ketamine 50 MG/ML (10ML VIAL) ONE (10:04)
[2022-06-19] MEDS ORDERED: CEFAZOLIN 2 GM VIAL ONE (10:04)
[2022-06-19] MEDS ORDERED: Sodium Chloride 0.9% 100 ML ONE (10:04)
[2022-06-19] MEDS ORDERED: Midazolam HCl 2 mg/2 ml Vial ONE (10:11)
[2022-06-19] MEDS ORDERED: Bacitracin Zinc Ointment 30 gm TUBE ONE (10:56)
[2022-06-19] MEDS ORDERED: Fentanyl 100 MCG/2 ML VIAL ONE ×2 (11:38→11:58)
[2022-06-19 17:27] VITALS: TEMP 98.1
[2022-06-19 20:15] VITALS: BP 120/56
== END 2022-06-19 20:40 | disposition home or self-care (01) | DRG 981 ==
LOC: ERS 08:55 → ERHOLD 11:48 → 2NO 15:44
PROVIDERS: ADMIT Internal Medicine; ATTEND Internal Medicine
PROC: 5A1D70Z Performance of Urinary Filtration, Intermittent, Less than 6 Hours Per Day (ICD-10-PCS; 2022-06-14)
PROC: 30233N1 Transfusion of Nonautologous Red Blood Cells into Peripheral Vein, Percutaneous Approach (ICD-10-PCS; 2022-06-14)
PROC: 06HY33Z Insertion of Infusion Device into Lower Vein, Percutaneous Approach (ICD-10-PCS; 2022-06-14)
PROC: 0W3P8ZZ Control Bleeding in Gastrointestinal Tract, Via Natural or Artificial Opening Endoscopic (ICD-10-PCS; principal; 2022-06-15)
PROC: B51W1ZZ Fluoroscopy of Dialysis Shunt/Fistula using Low Osmolar Contrast (ICD-10-PCS; 2022-06-18)
PROC: 0Y6M0ZD Detachment at Right Foot, Partial 4th Ray, Open Approach (ICD-10-PCS; 2022-06-19)
PROC: 0Y6S0Z1 Detachment at Left 2nd Toe, High, Open Approach (ICD-10-PCS; 2022-06-19)
PROC: 0Y6M0ZF Detachment at Right Foot, Partial 5th Ray, Open Approach (ICD-10-PCS; 2022-06-19)
PROC: 0JH60XZ Insertion of Tunneled Vascular Access Device into Chest Subcutaneous Tissue and Fascia, Open Approach (ICD-10-PCS; 2022-06-19)
PROC: 02HV33Z Insertion of Infusion Device into Superior Vena Cava, Percutaneous Approach (ICD-10-PCS; 2022-06-19)
PROC: B518ZZA Fluoroscopy of Superior Vena Cava, Guidance (ICD-10-PCS; 2022-06-19)
PROC: B548ZZA Ultrasonography of Superior Vena Cava, Guidance (ICD-10-PCS; 2022-06-19)
DX: K25.4 Chronic or unspecified gastric ulcer with hemorrhage (principal); N18.6 End stage renal disease; T82.838A Hemorrhage due to vascular prosthetic devices, implants and grafts, initial encounter; D62 Acute posthemorrhagic anemia; E11.52 Type 2 diabetes mellitus with diabetic peripheral angiopathy with gangrene; I12.0 Hypertensive chronic kidney disease with stage 5 chronic kidney disease or end stage renal disease; E87.20 Acidosis, unspecified; K31.811 Angiodysplasia of stomach and duodenum with bleeding; Z20.822 Contact with and (suspected) exposure to COVID-19; Y83.2 Surgical operation with anastomosis, bypass or graft as the cause of abnormal reaction of the patient, or of later complication, without mention of misadventure at the time of the procedure; E11.621 Type 2 diabetes mellitus with foot ulcer; L97.519 Non-pressure chronic ulcer of other part of right foot with unspecified severity; E11.22 Type 2 diabetes mellitus with diabetic chronic kidney disease; E66.9 Obesity, unspecified; E78.5 Hyperlipidemia, unspecified; K21.9 Gastro-esophageal reflux disease without esophagitis; I45.10 Unspecified right bundle-branch block; G47.33 Obstructive sleep apnea (adult) (pediatric); F41.9 Anxiety disorder, unspecified; G89.29 Other chronic pain; E87.5 Hyperkalemia; Z86.010 Personal history of colon polyps; Z99.2 Dependence on renal dialysis; Z68.31 Body mass index [BMI] 31.0-31.9, adult; Z79.899 Other long term (current) drug therapy; Z79.82 Long term (current) use of aspirin; Z79.52 Long term (current) use of systemic steroids; Z79.01 Long term (current) use of anticoagulants; Z82.49 Family history of ischemic heart disease and other diseases of the circulatory system; Z84.1 Family history of disorders of kidney and ureter; Z98.890 Other specified postprocedural states; Z79.84 Long term (current) use of oral hypoglycemic drugs
CPT/HCPCS: 36415; 36416; 36430; 36901; 71045; 74177; 80048; 80053; 81003; 81015; 82274; 83605; 83690; 83735; 84484; 85025; 85610; 85730; 86704; 86850; 86900; 86901; 88305; 88311; 90935; 93005; 96365; 96368; 96374; 96375; 97139; C9113; G0257; J1200; J1642; J1644; J1815; J2001; J2250; J2704; J3010; J3490; P9016; Q5105; Q9967; U0003; U0005